=== PATIENT | female | born 2005 | race Caucasian/White ===

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

== ENCOUNTER 2025-04-07 17:35 | Emergency (ER) | payer OTHER, SELFPAY ==
--- NOTE | ~2025-04-07 | US_ITS ---
FIRST TRIMESTER ULTRASOUND 04/07/2025 19:05 CDT Ordering provider: Maci Santillan MD History: . cramping, preg . Comparison: None. FINDINGS: INTRAUTERINE GESTATIONAL SAC: Present. Measures 5.2 cm. Equivalent to 11 weeks and 0 days. YOLK SAC: Not visualized. POLE: Present. Measures 5.8 cm equivalent to 12 weeks and 3 days. heart beats are detected and measures 154 bpm. GESTATIONAL AGE BY TODAY'S US: 12 weeks and 3 days. UTERUS: The uterus measures 11.5x 8.3x 8.4 cm in length which is within normal limits. No myometrial masses. FREE FLUID: None. OVARIES: Normal in size with the right measuring 2.6x 2.4x 1.8 cm and the left is not demonstrated. D oppler flow is demonstrated within the right ovary. ADNEXAL MASSES: None. IMPRESSION: Single live intrauterine with pole of 12 weeks and 3 days. SARAVANAN is October 17, 2025 Reviewed, dictated and finalized at location A.
[2025-04-07 17:38] VITALS: BP 112/73; PULSE 77; RESP 16; TEMP 36.4; O2SAT 100
--- NOTE | 2025-04-07 19:34 | ED_ITS ---
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 cramping Time Seen by Provider: 04/07/25 19:35 Focused HPI: This is a 20 year old female that presents to the ER for pelvic cramping. This is her first . Her OB is Dr. Loomis. Reports she is about 12 weeks . Starting to have cramping at work. Denies any vaginal bleeding. Reports she has not drank much water today. She has had some nausea and vomiting this . Denies fever, dysuria. GENERAL: Well-appearing, well-nourished, and in no acute distress. HEAD: Normocephalic, atraumatic. CHEST: Clear to auscultation. ?No respiratory distress. HEART: Regular rate and rhythm.? NEURO: ?Alert and oriented x3. Patient screened in triage and initial orders placed.? ?Additional care and disposition to be based upon?diagnostic testing and treatment. Related Data Home Medications ?Medication ?Instructions ?Recorded ?Confirmed ?Last Taken ?Type vits no.126-ferrous fum tablet PO 02/20/25 02/20/25 Unknown History 28 mg iron-folic acid 800 mcg tablet (Classic ) Allergies Allergy/AdvReac Type Severity Reaction Status Date / Time gluten Allergy Vomiting Verified 04/07/25 17:36 Review of Systems Review of Systems: All systems reviewed & are unremarkable except as noted in HPI and below PMFSH Past Medical History Medical History (Updated 04/07/25 @ 20:10 by Carrie Luciano PA-C) Rheumatoid arthritis Normal endoscopy Celiac disease GERD (gastroesophageal reflux disease) Surgical History Surgical History (Updated 02/19/25 @ 12:58 by Johana Munguia CMA) History of appendectomy History of endoscopy Family History Family History (Updated 02/19/25 @ 12:57 by Johana Munguia CMA) Mother Hypertension Father Liver cancer Grandparent Cerebrovascular accident Heart disease Diabetes mellitus Hypertension Social History Social History (Updated 02/20/25 @ 14:53 by Johana Munguia CMA) Smoking status: Never smoker Alcohol intake: never Substance use: never Substance use type: does not use Do You Feel Safe in your Home?: Yes Lack of Transportation: YES Lack of Food: Never True Current Housing: I Have Housing Concerned About Future Housing: Decline to Answer Difficulty Paying Gas/Electric Bills: No Difficulty Paying for Meds: No Currently Unemployed: Decline to Answer Education: Decline to Answer Difficulty w/ Childcare or Family Care: No Living arrangements: with family Occupation/Education: occupation Gender identity (if verbalized by the patient): Female Sexual Orientation (if Verbalized by the Patient): Straight or Heterosexual Exam Narrative: GENERAL: Well-appearing, well-nourished, and in no acute distress. HEAD: Normocephalic, atraumatic. EYES: EOMI. CHEST: Clear to auscultation. No respiratory distress. No wheezes rales or rhonchi HEART: Regular rate and rhythm. No murmur heard. Normal peripheral pulses. ABDOMEN: Soft, nondistended EXTREMITIES: Normal range of motion. No edema. SKIN: Warm, dry, no rash. NEURO: No focal deficits. Alert and oriented x3. PSYCH: Normal mood and affect Course Course Emergency Course: Patient and family updated on ultrasound results. She does not wish to stay for any further evaluation or management Vital Signs Vital signs: Vital Signs Temperature 97.6 F 04/07/25 17:38 Pulse Rate 77 04/07/25 17:38 Respiratory Rate 16 04/07/25 17:38 Blood Pressure 112/73 04/07/25 17:38 Pulse Oximetry 100 04/07/25 17:38 Temperature 97.6 F 04/07/25 17:38 Pulse Rate 77 04/07/25 17:38 Respiratory Rate 16 04/07/25 17:38 Blood Pressure 112/73 04/07/25 17:38 Pulse Oximetry 100 04/07/25 17:38 MDM - OB/Uterine Contractions MDM Narrative Medical decision making narrative: Patient presents the emergency department for pelvic cramping in 1st trimester . She denies any vaginal bleeding. Vitals are normal. ultrasound shows single live intrauterine gestation, 12 weeks and 3 days. Patient and family updated on ultrasound results. She does not wish to stay for any further evaluation or management. Instructed on further follow-up with her OB. She was given warnings to return the ER Differential Diagnosis Differential diagnosis: Likely other (dehydration, UTI, threatened miscarriage) Imaging Data Radiologist's impression: ITS Impressions Ultrasound 04/07/25 19:51 IMPRESSION: Single live intrauterine with pole of 12 weeks and 3 days. SARAVANAN is October 17, 2025 Critical Care Time Critical Care Time Critical Care Time: No Discharge Plan Discharge Clinical Impression: Abdominal pain in Qualifiers: Trimester: first trimester Qualified Code(s): O26.891 - Other specified related conditions, first trimester Patient Disposition: Home Condition: Stable Instructions: Abdominal Pain in (ED) Additional Instructions: Return to the ER if you experience fever, abdominal pain with nausea and vomiting, pain or burning with urination, blood in the urine, vaginal bleeding, or any other symptoms that are concerning to you Rest. Remain well hydrated. Tylenol as needed for discomfort Follow up with your OB Patient Language: Tuvaluan Prescriptions: No Action albuterol sulfate 90 mcg/actuation HFA aerosol inhaler 1 inh inhalation QID PRN (Reason: shortness of breath or wheezing) Qty: 8.5 0RF Classic 28 mg iron- 800 mcg tablet PO metoclopramide HCl [Reglan] 5 mg tablet 5 mg PO DAILY Qty: 30 1RF Follow-up/Referrals: Mike,Sadie Aldana MD [Primary Care Provider] - Stuart Loomis MD [Physician] -
== END 2025-04-07 21:44 | disposition home or self-care (01) ==
LOC: ANHED 20:18
PROVIDERS: Emergency Provider Physician Assistant; PCP Internal Medicine Gastroenterology
DX: O26.891 Other specified pregnancy related conditions, first trimester (principal); R10.2 Pelvic and perineal pain; Z3A.12 12 weeks gestation of pregnancy
CPT/HCPCS: 76801; 99284

== ENCOUNTER 2025-06-15 13:06 | Observation (INO) | payer OTHER, SELFPAY ==
[2025-06-15] VITALS (46 sets, daily range): BP systolic 105–122; BP diastolic 51–69; PULSE 41–88; O2SAT 80–100; BMI 31.2
--- NOTE | ~2025-06-15 | US_ITS ---
EXAMINATION: US OB limited, 06/15/2025 14:51 CDT HISTORY: Abdominal pain Comparison: None Technique: Llanos-scale and color Doppler images were obtained COMPARISON: None FINDINGS: The placenta is located anteriorly, there is no gross abruption Single live intrauterine in vertex presentation, heart rate 150 Cervix measures 3.1 cm with no funneling. TONJA 14.0. IMPRESSION: Single live intrauterine detailed above Reviewed, dictated and finalized at location A.
--- OUTSIDE RECORDS SUMMARY | 2025-06-15 13:14 | XMS_ITS | Clinical Summary ---
Author Organization [facility] Address [address] [place] [address] Care Team Providers Care Unit Manager [employer] Name Role Phone Ava Faust MD Primary Care Provider [phone] Source Comments [facility],non-owned Affiliates and Associated Physician Practices is amultiple site organization consisting of ambulatory clinics and hospital sitesin [place], [place], [place] and [place]. This disclosure is being madepursuant to the Care Everywhere program and may not contain all information available regarding this patient. Last updated 18.[facility] Allergies Active Allergy Reactions Criticality Noted Date Comments Gluten Meal 10/07/2017 Medications * Be aware that medications may not be up to date on this document. Alwaysverify current medications with the patient. ondansetron, disintegrating, (Zofran ODT) 4 MG tablet Take 1 (one) tablet by mouth every 6 hours as needed for Nausea/Vomitin g Allow tablet to dissolve on the tongue 5 tablet 3 Active acetaminophen CR (Tylenol Arthritis Pain) 650 MG tablet Take 1 (one) tablet by mouth every 8 hours as needed for Pain Active omeprazole (PriLOSEC) 40 MG capsule Take 1 (one) capsule by mouth daily before breakfast 30 capsule 4 3 Active famotidine (Pepcid) 40 MG tablet Take 1 (one) tablet by mouth once daily 30 tablet 3 3 Active Active Problems Patient Care Coordination No te Formatting of this note migh t be different from the original. 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 ) from Last 3 Months Family History Medical History Relation Name Comments Arthritis - Rheumatoid Maternal Grandmother Congenital Heart defect Paternal Aunt Relation Name Status Comments Maternal Grandmother Paternal Aunt 3 HOLES IN HEA RT THAT RESOLVED ON OWN Social History Tobacco Use Types Packs/Day Years Used Date Smoking Tobacco: Never Passive Smoke Exposure: Yes Smokeless Tobacco: Never Tobacco Cessation:Counseling Given: Not Answered Alcohol Use Standard Drinks/Week Comments Never 0 (1 standard drink = 0.6 oz pur e alcohol) Comments Yes Sex and Gender Information Value Date Recorded Sex Assigned at Not on file Legal 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 Gender Identity Not on file Sexual Orientation Not on file Last Filed Vital Signs Vital Sign Reading Time Taken Comments Blood Pressure 112/70 01/18/2023 2:19 PM CDT Pulse 60 12/11/2022 3:25 AM TETRYL DISSOLVER OPERATOR Temperature 36.7 C (98 F) 12/27/2022 1:34 PM CDT Respiratory Rate 18 12/11/2022 3:25 AM TETRYL DISSOLVER OPERATOR Oxygen Saturation 99% 12/11/2022 3:25 AM TETRYL DISSOLVER OPERATOR Inhaled Oxygen Concentration - - Weight 82.8 kg (182 lb 8.7 oz) 01/18/2023 2:19 P M CDT Height 162.5 cm (5' 3.98) 01/18/2023 2:19 PM CD T Body Mass Index 31.36 01/18/2023 2:19 PM CDT Plan of Treatment Health Maintenance Due Date Last Done Comments HIV SCREENING 2020 HPV VACCINE (1 - 3-dose series) 2020 CHLAMYDIA/GONORRHEA SCREENING 2021 MENINGOCOCCAL (Group B) VACCINE SHARED DECISION-MAKING (1 of 2 - Standard) 2021 HEPATITIS C SCREENING 02/28/2023 DTAP/TDAP/TD VACCINES (1 - Tdap) 2024 HEPATITIS B VACCINE (1 of 3 - 19+ 3-dose series) 2024 COVID-19 VACCINE (1 - 2023- season) 2024 DEPRESSION SCREENING 10/17/2024 INFLUENZA VACCINE (#1) 2025 2, 08/01/2017, 07/17/2015, Additional history exists ZOSTER VACCINE (1 of 2) 2055 Respiratory Syncytial Virus (RSV) Vaccine Pt: or over 60 yrs (1 - 1-dose 75+ series) 2080 HIB VACCINE Aged Out No longer eligi ble based on patient's age to complete this topic MENINGOCOCCAL GROUPS A/C/Y/W VACCINE Aged Out No longer eligible based on patient's age to complete this topic PNEUMOCOCCAL VACCINE Aged Out No long er eligible based on patient's age to complete this [place] [address] [facility] [place] [address] [place] [address] [facility] Care Teams Unit Manager [employer] Relationship Specialty Start Date End Date vAa Faust MD [address] [place] [id number] PCP - General Pediatrics 12/11/22
--- OUTSIDE RECORDS SUMMARY | 2025-06-15 13:14 | XMS_ITS | Clinical Summary ---
Author Organization [facility] Address [address] [place] [address] Care Team Providers Care Reconstructive Surgeon Name Role Phone Sadie Mckeon MD Primary Care Provider Allergies No known active allergies Medications No known medications Active Problems No known active problems Social History Tobacco Use Types Packs/Day Years Used Date Smoking Tobacco: Never Assessed Personal Safety Answer Date Recorded Have you ever been in or are you currently in a harmful physical or emotional relationship or is someone making you feel afraid or unsafe? 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 Gender Identity Not on file Sexual Orientation Not on file Obstetrics History Last Filed Vital Signs Vital Sign Reading Time Taken Comments Blood Pressure 104/68 10/27/2023 8:39 PM STEAM FITTER SUPERVISOR MAINTENANCE Pulse 112 10/27/2023 8:39 PM STEAM FITTER SUPERVISOR MAINTENANCE Temperature 36.4 C (97.6 F) 10/27/2023 8:39 PM STEAM FITTER SUPERVISOR MAINTENANCE Respiratory Rate 20 10/27/2023 8:39 PM STEAM FITTER SUPERVISOR MAINTENANCE Oxygen Saturation 100% 10/27/2023 8:39 PM STEAM FITTER SUPERVISOR MAINTENANCE Inhaled Oxygen Concentration - - Weight 77.1 kg (170 lb) 10/27/2023 8:39 PM STEAM FITTER SUPERVISOR MAINTENANCE Height 162.6 cm (5' 4) 10/27/2023 8:39 PM STEAM FITTER SUPERVISOR MAINTENANCE Body Mass Index 29.18 10/27/2023 8:39 PM STEAM FITTER SUPERVISOR MAINTENANCE Plan of Treatment Not on file Insurance [facility] [address] Care Teams Reconstructive Surgeon Relationship Specialty [place] [address] [place] [id number] PCP - General Gastroenterology 10/27/23
[2025-06-15 13:35] LABS: Add Urine Microscopic? YES; Appearance Urine Cloudy (Clear); Glucose Urine UA Negative (Negative); Leukocyte Esterase Ur Trace LEU/UL (Negative); Nitrate Urine Negative (Negative); Non Pathogenic Casts 0-2; Specific Grav Ur 1.008 (1.001-1.035)
--- NOTE | 2025-06-15 13:39 | LDADM ---
This patient, Anand Rasheed, was admitted to OB Post [facility] on 06/15/25 at 13:06. Plans for labor, pain management and were discussed with patient. Patient/family oriented to hospital policies and general routines including ID bracelet, bed and alarms, visiting hours, pain management, procedures, bathroom and other care routines, personal items, smoking policy, room service/diet and guest tray routines, infant security routines, and visiting hours. Patient/Family are encouraged to report perceived risks to care and to ask questions if they do not understand what they are told or what they should do. See OBIX for further documentation.
--- NOTE | 2025-06-15 14:21 | PC.NURSE ---
[address] Wong to report pt. symptoms lab results, and vital signs to . Orders received for pt to get ultrasound including TONJA, cervical length, and placenta check.
--- NOTE | 2025-06-15 14:23 | PC.NURSE ---
1306- Pt. arrived to unit via ambulance. Pt. c/o lower abdominal pain and pressure and lower back pain. Pt. states she started feeling this pain last night 06/14/25 around 1999. Pt. had intercourse one hour prior to feeling this pain. Pt. does not report any vaginal bleeding or leaking of fluid at this time. Pt. feeling fetus move appropriately. Pt. does not have her own housing and is currently living in a motel with the fob. Pt has celiac disease but states she does not follow appropriate celiac gluten free diet due to financial situation. Pt. does not have her own form of transportation or cell phone. Pt. has not eaten anything today prior to arriving at hospital. RN provided gluten free foods for pt. to eat and water. Used doppler to obtain FHT's with baseline at 124. Used toco transducer to obtain uterine activity. No uterine activity or contractions per toco at this time.
--- NOTE | 2025-06-15 15:26 | PC.NURSE ---
1517- Called Dr. Wong to report ultrasound results. Orders received.
[2025-06-15] MEDS: ACETAMINOPHEN 500 MG TABLET PO (15:35)
[2025-06-15] MEDS: CYCLOBENZAPRINE HCL 10 MG TABLET PO (15:36)
[2025-06-15 15:52] LABS: Hematocrit 34.4 % (37.0-47.0); Hemoglobin 11.7 g/dL (12.0-15.0); Mean Corpuscular HGB Conc 34.0 g/dl (32-36); Mean Corpuscular Hemoglobin 30.5 pg (26-34); Mean Corpuscular Volume 89.6 fl (80-100); Platelet Count Result 166 k/mm3 (150-375); Red Blood Count 3.84 M/mm3 (4.2-5.4); White Blood Count 11.6 K/mm3 (4.5-10.0)
[2025-06-15 16:10] LABS: Alanine Aminotransferase 13 U/L (6-35); Albumin Level 3.9 g/dL (3.5-5.1); Alkaline Phosphatase 43 U/L (38-126); Anion Gap 8 mmol/L (4-12); Aspartate Amino Transferase 19 U/L (14-36); Bilirubin,Total 0.4 mg/dL (0.2-1.3); Blood Urea Nitrogen 5 mg/dL (7-17); Calcium 9.2 mg/dL (8.4-10.2); Carbon Dioxide 23 mmol/L (22-30); Chloride 106 mmol/L (98-107); Estimated CRCL calculation 178 ml/min; Estimated Glomerular Filt Rate > 60; Glucose 80 mg/dL (65-110); Potassium 3.5 mmol/L (3.4-5.0); Sodium 137 mmol/L (137-145); Total Protein 7.4 g/dL (6.3-8.2)
--- NOTE | 2025-06-15 16:49 | PC.NURSE ---
1600- Spoke to pt. prior to discharge about where she will be returning once dc from hospital. Pt. states mother (who is at bedside at this time) will drive her home to their house and then mother in law will come apple picking supervisor pt and bring her back to motel where pt and fob are currently living. Mother of pt. states she is welcome to return to their family home whenever she pleases now and after the baby comes. Pt. is aware of this offer and refuses to stay at home with mom and dad but recognizes this is a safe option for her if she would like. Pt. would rather live in motel with fob.
--- NOTE | 2025-06-15 16:53 | PC.NURSE ---
7230- Called Dr. Wong to report lab results from CMP and CBC. Also reported pt pain reassessment. Pt. states her pain is at a 0 now. Orders received from MD to discharge pt home.
--- NOTE | 2025-06-18 07:39 | P.PNOB_ITS ---
OB - Triage/Final Diagnosis Visit Information Comments/Additional reasons for admission: I have assessed the risk for this patient, Anand Rasheed, and determined that she would benefit from observation care. Evaluation Laboratory results: Laboratory Tests 06/15/25 06/15/25 13:26 15:40 WBC 11.6 H RBC 3.84 L Hgb 11.7 L Hct 34.4 L MCV 89.6 MCH 30.5 MCHC 34.0 RDW 13.8 Plt Count 166 MPV 10.9 H Sodium 137 Potassium 3.5 Chloride 106 Carbon Dioxide 23 Anion Gap 8 BUN 5 L D Creatinine 0.41 L Estim Creat Clear Calc 178 Estimated GFR > 60 Glucose 80 Calcium 9.2 Total Bilirubin 0.4 AST 19 ALT 13 Alkaline Phosphatase 43 Total Protein 7.4 Albumin 3.9 Urine Color Yellow Urine Appearance Cloudy H Urine pH 7.0 Ur Specific [place] 1.008 Urine Protein Negative Urine Glucose (UA) Negative Urine Ketones Negative Ur Blood (Man) Negative Urine Nitrate Negative Urine Bilirubin Negative Urine Urobilinogen 0.2 Leukocyte Esterase Rfl Trace H Urine RBC 0-2 Urine WBC 11-20 H Ur Squamous Epith Cells Many H Urine Bacteria 1+ H Urine Casts 0-2 Final Diagnosis (1) Abdominal pain affecting : Code(s): O26.899 - Other specified related conditions, unspecified trimester; R10.9 - Unspecified abdominal pain Status: Acute
== END 2025-06-15 16:50 | disposition home or self-care (01) ==
PROVIDERS: Admitting Provider Obstetrics & Gynecology; Visit Provider Obstetrics & Gynecology
DX: O26.92 Pregnancy related conditions, unspecified, second trimester (principal); R10.9 Unspecified abdominal pain; Z3A.22 22 weeks gestation of pregnancy
CPT/HCPCS: 36415; 76815; 80053; 81001; 85027; A9270; G0378; G0379

== ENCOUNTER 2025-06-21 12:29 | Observation (INO) | payer OTHER, SELFPAY ==
[2025-06-21] VITALS (11 sets, daily range): BP systolic 122–128; BP diastolic 67–79; PULSE 56–87; TEMP 36.4; O2SAT 97–99; BMI 31.2
--- NOTE | 2025-06-21 12:32 | PC.NURSE ---
Patient arrives to OB unit with complaints of lower abdominal and back pain. Patient states when she wipes it feels like sandpaper after she urinates. Patient denies any vaginal bleeding or leaking of fluid. Patient is a . Patient states she feels movement. Patient states she took tylenol this morning and it did not relieve the pain. Patient abdomen is soft to palpation. [id number]- RN notified MD of patient arrival and patient's urine sample. RN also notified MD of patient complaints as well as FHT tracing and abdomen that is soft to palpation, as well as VS. MD gave medication orders, see MAR. MD gave orders to d/c patient after medications are given.
--- OUTSIDE RECORDS SUMMARY | 2025-06-21 12:41 | XMS_ITS | Clinical Summary ---
Author Organization [facility] Address [address] [place] [address] Care Team Providers Care Mobility Engineer Name Role Phone Sadie Mckeon MD Primary [...] on file Legal Sex Female 11:19 AM TUGBOAT ENGINEER Gender Identity Not on file Sexual Orientation Not on file Obstetrics History Last Filed Vital Signs Vital Sign Reading Time Taken Comments Blood Pressure 104/68 10/27/2023 8:39 PM TUGBOAT ENGINEER Pulse 112 10/27/2023 8:39 PM TUGBOAT ENGINEER Temperature 36.4 C (97.6 F) 10/27/2023 8:39 PM TUGBOAT ENGINEER Respiratory Rate 20 10/27/2023 8:39 PM TUGBOAT ENGINEER Oxygen Saturation 100% 10/27/2023 8:39 PM TUGBOAT ENGINEER Inhaled Oxygen Concentration - - Weight 77.1 kg (170 lb) 10/27/2023 8:39 PM TUGBOAT ENGINEER Height 162.6 cm (5' 4) 10/27/2023 8:39 PM TUGBOAT ENGINEER Body Mass Index 29.18 10/27/2023 8:39 PM TUGBOAT ENGINEER Plan of Treatment Not on file Insurance [facility] [place] [address] Care Teams Mobility Engineer Relationship Specialty [place] [address] [place] [id number] PCP - General Gastroenterology 10/27/23
--- OUTSIDE RECORDS SUMMARY | 2025-06-21 12:41 | XMS_ITS | Clinical Summary ---
Author Organization [facility] [employer] Address [address] [place] [address] Care Team Providers Care Front End Specialist Name Role Phone Ava Faust MD Primary Care Provider [phone] Source Comments [facility],non-owned Affiliates and Associated Physician Practices is amultiple site organization consisting of ambulatory clinics and hospital sitesin [place], [place], [place] and [place]. This disclosure is being madepursuant to the Care Everywhere program and may not contain all information available regarding this patient. Last updated 18.[facility] [employer] Allergies Active Allergy Reactions Criticality Noted Date [...] Type Department Care Team Description 04/22/2025 Telephone [facility] Maternal & Care [facility] [place] [phone] Venessa Fraser RN Future Appointment (Patient returned [...] on file Legal Sex Female 5:44 AM GLUER AND SLICER HAND Gender Identity Not on file Sexual Orientation Not on file Last Filed Vital Signs Vital Sign Reading Time Taken Comments Blood Pressure 112/70 01/18/2023 2:19 PM CDT Pulse 60 12/11/2022 3:25 AM GLUER AND SLICER HAND Temperature 36.7 C (98 F) 12/27/2022 1:34 PM CDT Respiratory Rate 18 12/11/2022 3:25 AM GLUER AND SLICER HAND Oxygen Saturation 99% 12/11/2022 3:25 AM GLUER AND SLICER HAND Inhaled Oxygen Concentration - - Weight 82.8 [...] of 3 - 19+ 3-dose series) 2024 DEPRESSION SCREENING 10/17/2024 COVID-19 VACCINE (1 - season) 2025 INFLUENZA VACCINE (#1) 2025 2, 08/01/2017, 07/17/2015, [...] to complete this topic [place] [address] [facility] [place] [address] [facility] Care Teams Front End Specialist Relationship Specialty Start Date End Date Ava Faust MD [address] [place] [phone] PCP - General Pediatrics 12/11/22
--- NOTE | 2025-06-21 12:45 | OBADM ---
This patient, Anand Rasheed, admitted to the OB room OB Post 115 for observation. Patient/family oriented to hospital policies and general routines including ID bracelet, bed and alarms, visiting hours, pain management, procedures, bathroom and other care routines, personal items, smoking policy, room service/diet, and visiting hours. Patient/Family are encouraged to report perceived risks to care and to ask questions if they do not understand what they are told or what they should do.
[2025-06-21 13:07] LABS: Add Urine Microscopic? YES; Appearance Urine Cloudy (Clear); Glucose Urine UA Negative (Negative); Leukocyte Esterase Ur Negative LEU/UL (Negative); Nitrate Urine Negative (Negative); Non Pathogenic Casts 0-2; Specific Grav Ur 1.008 (1.001-1.035)
[2025-06-21] MEDS: FLUCONAZOLE 150 MG TABLET PO (13:40)
--- NOTE | 2025-06-24 13:49 | P.PNOB_ITS ---
OB - Triage/Final Diagnosis Visit Information Date of evaluation: 06/21/25 Reason for evaluation: threatened labor Comments/Additional reasons for admission: I have assessed the risk for this patient, Anand Rasheed, and determined that she would benefit from observation care. Evaluation Laboratory results: Laboratory Tests 06/21/25 12:53 Urine Color Yellow Urine Appearance Cloudy H Urine pH 8.5 Ur Specific [place] 1.008 Urine Protein Negative Urine Glucose (UA) Negative Urine Ketones Negative Ur Blood (Man) Negative Urine Nitrate Negative Urine Bilirubin Negative Urine Urobilinogen 0.2 Leukocyte Esterase Rfl Negative Urine RBC 0-2 Urine WBC 0-5 Ur Squamous Epith Cells Occasional Urine Bacteria None seen Urine Casts 0-2
== END 2025-06-21 15:15 | disposition home or self-care (01) ==
PROVIDERS: Admitting Provider Student in an Organized Health Care Education/Training Program; Visit Provider Student in an Organized Health Care Education/Training Program
DX: O47.02 False labor before 37 completed weeks of gestation, second trimester (principal); Z3A.23 23 weeks gestation of pregnancy
CPT/HCPCS: 59025; 81001; A9270; G0378; G0379

== ENCOUNTER 2025-08-06 14:45 | Outpatient (CLI) | payer OTHER, SELFPAY ==
[2025-08-06 16:09] LABS: Hematocrit 37.6 % (37.0-47.0); Hemoglobin 12.6 g/dL (12.0-15.0); Mean Corpuscular HGB Conc 33.5 g/dl (32-36); Mean Corpuscular Hemoglobin 30.4 pg (26-34); Mean Corpuscular Volume 90.6 fl (80-100); Platelet Count Result 189 k/mm3 (150-375); Red Blood Count 4.15 M/mm3 (4.2-5.4); White Blood Count 13.9 K/mm3 (4.5-10.0)
[2025-08-06 16:22] LABS: Glucose 1 Hour PP 50gm Dose 68 mg/dL
[2025-08-06 17:13] LABS: Syphilis IgG/IgM Antibody Non-Reactive (Nonreactive)
--- OUTSIDE RECORDS SUMMARY | 2025-08-06 18:42 | XMS_ITS | Clinical Summary ---
Author Organization [facility] [employer] Address [address] [place] [address] Care Team Providers Care Glove Parts Cutter Name Role Phone Ava Faust MD Primary Care Provider [phone] Source Comments [facility],non-owned Affiliates and Associated Physician Practices is amultiple site organization consisting of ambulatory clinics and hospital sitesin [place], [place]. This disclosure is being madepursuant to the Care Everywhere program and may not contain all information available regarding this patient. Last updated 18.[facility] Allergies Active Allergy Reactions Criticality Noted Date [...] 95% Right ankle injury 02/19/2014 Comments Yes Family History Medical History Relation Name Comments [...] on file Legal Sex Female 5:44 AM CONCRETE SCULPTOR Gender Identity Not on file Sexual Orientation Not on file Last Filed Vital Signs Vital Sign Reading Time Taken Comments Blood Pressure 112/70 01/18/2023 2:19 PM CDT Pulse 60 12/11/2022 3:25 AM CONCRETE SCULPTOR Temperature 36.7 C (98 F) 12/27/2022 1:34 PM CDT Respiratory Rate 18 12/11/2022 3:25 AM CONCRETE SCULPTOR Oxygen Saturation 99% 12/11/2022 3:25 AM CONCRETE SCULPTOR Inhaled Oxygen Concentration - - Weight 82.8 [...] DEPRESSION SCREENING 10/17/2024 COVID-19 VACCINE (1 - 2023- season) 2025 INFLUENZA VACCINE (#1) 2025 2, [...] patient's age to complete this topic Insurance [facility] Care Teams Glove Parts Cutter Relationship Specialty Start Date End Date Ava Faust MD [address] [place] [phone] PCP - General Pediatrics 12/11/22
--- OUTSIDE RECORDS SUMMARY | 2025-08-06 18:42 | XMS_ITS | Clinical Summary ---
Author Organization [facility] Address [address] [place] [address] Care Team Providers Care Ebay Reseller Name Role Phone Sadie Mckeon MD Primary [...] on file Legal Sex Female 11:19 AM HISTOTECHNOLOGIST Gender Identity Not on file Sexual Orientation Not on file Obstetrics History Last Filed Vital Signs Vital Sign Reading Time Taken Comments Blood Pressure 104/68 10/27/2023 8:39 PM HISTOTECHNOLOGIST Pulse 112 10/27/2023 8:39 PM HISTOTECHNOLOGIST Temperature 36.4 C (97.6 F) 10/27/2023 8:39 PM HISTOTECHNOLOGIST Respiratory Rate 20 10/27/2023 8:39 PM HISTOTECHNOLOGIST Oxygen Saturation 100% 10/27/2023 8:39 PM HISTOTECHNOLOGIST Inhaled Oxygen Concentration - - Weight 77.1 kg (170 lb) 10/27/2023 8:39 PM HISTOTECHNOLOGIST Height 162.6 cm (5' 4) 10/27/2023 8:39 PM HISTOTECHNOLOGIST Body Mass Index 29.18 10/27/2023 8:39 PM HISTOTECHNOLOGIST Plan of Treatment Not on file Insurance [facility] [place] [address] Care Teams Ebay Reseller Relationship Specialty [place] [address] [place] [id number] PCP - General Gastroenterology 10/27/23
[2025-08-06 21:50] LABS: HIV 1/2 Ab P24 Ag Result Negative (Negative)
== END 2025-08-06 14:46 | disposition home or self-care (01) ==
LOC: ANHLAB 14:46
PROVIDERS: PCP Internal Medicine Gastroenterology; Visit Provider Student in an Organized Health Care Education/Training Program
DX: Z34.90 Encounter for supervision of normal pregnancy, unspecified, unspecified trimester (principal)
CPT/HCPCS: 36415; 82947; 85027; 86593; 86703; G0432

== ENCOUNTER 2025-08-09 15:15 | Observation (INO) | payer OTHER, SELFPAY ==
[2025-08-09] VITALS (44 sets, daily range): BP systolic 105–133; BP diastolic 52–76; PULSE 58–107; O2SAT 97–100
[2025-08-09 15:55] LABS: Add Urine Microscopic? YES; Appearance Urine Cloudy (Clear); Glucose Urine UA Negative (Negative); Leukocyte Esterase Ur Trace LEU/UL (Negative); Nitrate Urine Negative (Negative); Non Pathogenic Casts 0-2; Specific Grav Ur 1.015 (1.001-1.035)
[2025-08-09] MEDS: ACETAMINOPHEN 500 MG TABLET 1000 MG PO (16:50)
[2025-08-09] MEDS: CYCLOBENZAPRINE HCL 10 MG TABLET PO (16:52)
[2025-08-09] MEDS: TERBUTALINE SULFATE 1 MG/ML VIAL 0.25 MG SUB-Q (18:10)
[2025-08-09 18:35] LABS: OBXCEM ROM Plus Negative (Negative)
--- NOTE | 2025-08-12 09:47 | P.PNOB_ITS ---
OB - Triage/Final Diagnosis Visit Information Date of evaluation: 08/09/25 Reason for evaluation: threatened labor Comments/Additional reasons for admission: I have assessed the risk for this patient, Anand Rasheed, and determined that she would benefit from observation care. Evaluation Laboratory results: Laboratory Tests 08/09/25 08/09/25 15:45 17:42 Urine Color Yellow Urine Appearance Cloudy H Urine pH 7.5 Ur Specific [place] 1.015 Urine Protein Negative Urine Glucose (UA) Negative Urine Ketones Negative Ur Blood (Man) Negative Urine Nitrate Negative Urine Bilirubin Negative Urine Urobilinogen 1.0 Leukocyte Esterase Rfl Trace H Urine RBC 0-2 Urine WBC 0-5 Ur Squamous Epith Cells Occasional Urine Bacteria None seen Urine Casts 0-2 Membranes Rupture Rom plus negative
== END 2025-08-09 19:03 | disposition home or self-care (01) ==
PROVIDERS: Admitting Provider Student in an Organized Health Care Education/Training Program; Visit Provider Student in an Organized Health Care Education/Training Program
DX: O47.03 False labor before 37 completed weeks of gestation, third trimester (principal); Z3A.30 30 weeks gestation of pregnancy
CPT/HCPCS: 81001; 84112; 96372; A9270; G0378; G0379; J3105

== ENCOUNTER 2025-08-23 13:28 | Emergency (ER) | payer OTHER, SELFPAY ==
[2025-08-23] VITALS (15 sets, daily range): BP systolic 105–111; BP diastolic 59–86; PULSE 60–98; RESP 13–24; O2SAT 97–100
--- NOTE | ~2025-08-23 | CT_ITS ---
EXAMINATION: CT brain wo con DATE: 08/23/2025 13:36 INDICATION: Right-sided hemiparesis during third trimester . TECHNIQUE: Computed tomography (CT) of the head was performed without intravenous contrast. Sagittal and coronal reconstructions were performed. The mA was adjusted according to patient size. Iterative reconstruction technique was employed. The dose-length product was 529.67 mGy-cm. COMPARISON: head CT dated 06/29/2023 FINDINGS: No acute intracranial hemorrhage, acute infarction or abnormal extra axial fluid collection. Ventricles are normal and symmetric. No mass/mass effect. The orbits, paranasal sinuses and mastoid air cells are normal. IMPRESSION: 1. Normal head CT. Reviewed, dictated and finalized at location A. OWS SOFTWARE DEVELOPER IMPRESSION: 1. Normal head CT.
--- NOTE | ~2025-08-23 | XR_ITS ---
EXAMINATION: XR chest 1V portable DATE: 08/23/2025 14:09 INDICATION: Weakness TECHNIQUE: A single frontal view of the chest was obtained. COMPARISON: 06/29/2023 FINDINGS: The lungs are clear. Heart shadow appears normal. Bones appear intact. IMPRESSION: 1. No focal acute process. Reviewed, dictated and finalized at location A. Y LEVEL LAB TECHNICIAN IMPRESSION: 1. No focal acute process.
--- NOTE | 2025-08-23 13:29 | ECG_ITS ---
Test Date: 2025-08-23 13:58:47 Measurements Intervals [place] Rate: 57 P: 33 MD: 142 QRS: 34 QRSD: 83 T: -3 QT: 402 QTc: 394 Interpretive Statements SINUS BRADYCARDIA WITH SINUS ARRHYTHMIA NONSPECIFIC T-WAVE ABNORMALITY No previous ECG available for comparison Electronically Signed On 08-23-2025 15:21:38 RESTAURANT ATTENDANT by Pranay Burr D.O
[2025-08-23 13:48] LABS: Hematocrit 33.1 % (37.0-47.0); Hemoglobin 11.3 g/dL (12.0-15.0); Immature Granulocyte Percent A 0.8 % (0-0.5); Lymphocytes Absolute Auto 2.34 K/mm3 (0.9-3.2); Mean Corpuscular HGB Conc 34.1 g/dl (32-36); Mean Corpuscular Hemoglobin 30.1 pg (26-34); Mean Corpuscular Volume 88.0 fl (80-100); Nucleated Red Blood Cells Absolute Auto 0.000 K/mm3 (0.0-0.012); Nucleated Red Blood Cells Perc 0.0 % (0.0-0.2); Platelet Count Result 155 k/mm3 (150-375); Red Blood Count 3.76 M/mm3 (4.2-5.4); White Blood Count 10.9 K/mm3 (4.5-10.0)
[2025-08-23 13:58] LABS: INR 1.0; Prothrombin Time 13.2 Seconds (11.1-14.7)
[2025-08-23 13:59] LABS: Partial Thromboplastin Time 28.5 Seconds (22.3-36.8)
[2025-08-23 14:03] LABS: Alanine Aminotransferase 11 U/L (6-35); Albumin Level 3.8 g/dL (3.5-5.1); Alkaline Phosphatase 85 U/L (38-126); Anion Gap 7 mmol/L (4-12); Aspartate Amino Transferase 17 U/L (14-36); Bilirubin,Total 0.4 mg/dL (0.2-1.3); Blood Urea Nitrogen 5 mg/dL (7-17); Calcium 8.5 mg/dL (8.4-10.2); Carbon Dioxide 20 mmol/L (22-30); Chloride 107 mmol/L (98-107); Estimated CRCL calculation 174 ml/min; Estimated Glomerular Filt Rate > 60; Glucose 86 mg/dL (65-110); Potassium 3.4 mmol/L (3.4-5.0); Sodium 134 mmol/L (137-145); Total Protein 7.2 g/dL (6.3-8.2)
[2025-08-23 14:10] LABS: Troponin I < 0.012 ng/mL (0.000-0.034)
--- OUTSIDE RECORDS SUMMARY | 2025-08-23 14:35 | XMS_ITS | Clinical Summary ---
Author Organization [facility] Address [address] [place] [address] Care Team Providers Care Glass Lined Tank Repairer Name Role Phone Ava Faust MD Primary Care Provider [phone] Source Comments [facility],non-owned Affiliates and Associated Physician Practices is amultiple site organization consisting of ambulatory clinics and hospital sitesin [place], [place], [place] and [place]. This disclosure is being madepursuant to the Care Everywhere program and may not contain all information available regarding this patient. Last updated 18.[facility] Allergies Active Allergy Reactions Criticality Noted Date [...] on file Legal Sex Female 5:44 AM CATTLE KILLER Gender Identity Not on file Sexual Orientation Not on file Last Filed Vital Signs Vital Sign Reading Time Taken Comments Blood Pressure 112/70 01/18/2023 2:19 PM CDT Pulse 60 12/11/2022 3:25 AM CATTLE KILLER Temperature 36.7 C (98 F) 12/27/2022 1:34 PM CDT Respiratory Rate 18 12/11/2022 3:25 AM CATTLE KILLER Oxygen Saturation 99% 12/11/2022 3:25 AM CATTLE KILLER Inhaled Oxygen Concentration - - Weight 82.8 [...] patient's age to complete this topic Insurance [facility] Care Teams Glass Lined Tank Repairer Relationship Specialty Start Date End Date Ava Faust MD [address] [place] [phone] PCP - General Pediatrics 12/11/22
--- OUTSIDE RECORDS SUMMARY | 2025-08-23 14:35 | XMS_ITS | Clinical Summary ---
Author Organization [facility] Address [address] [place] [address] Care Team Providers Care Stock Tracer Name Role Phone Sadie Mckeon MD Primary [...] on file Legal Sex Female 11:19 AM NURSE PRACTITIONER PHYSICIANS ASSISTANT Gender Identity Not on file Sexual Orientation Not on file Last Filed Vital Signs Vital Sign Reading Time Taken Comments Blood Pressure 104/68 10/27/2023 8:39 PM NURSE PRACTITIONER PHYSICIANS ASSISTANT Pulse 112 10/27/2023 8:39 PM NURSE PRACTITIONER PHYSICIANS ASSISTANT Temperature 36.4 C (97.6 F) 10/27/2023 8:39 PM NURSE PRACTITIONER PHYSICIANS ASSISTANT Respiratory Rate 20 10/27/2023 8:39 PM NURSE PRACTITIONER PHYSICIANS ASSISTANT Oxygen Saturation 100% 10/27/2023 8:39 PM NURSE PRACTITIONER PHYSICIANS ASSISTANT Inhaled Oxygen Concentration - - Weight 77.1 kg (170 lb) 10/27/2023 8:39 PM NURSE PRACTITIONER PHYSICIANS ASSISTANT Height 162.6 cm (5' 4) 10/27/2023 8:39 PM NURSE PRACTITIONER PHYSICIANS ASSISTANT Body Mass Index 29.18 10/27/2023 8:39 PM NURSE PRACTITIONER PHYSICIANS ASSISTANT Plan of Treatment Not on file Insurance [facility] Care Teams Stock Tracer Relationship Specialty [place] [address] [place] [id number] PCP - General Gastroenterology 10/27/23
--- NOTE | 2025-08-23 16:06 | ED.NEUROSD ---
HPI - Neuro Symptoms/Deficit General Chief Complaint: Suspected CVA Stated Complaint: R sided weakness x 2 hours Time Seen by Provider: 08/23/25 14:26 Source: patient Mode of arrival: EMS Limitations: no limitations History of Present Illness HPI Narrative: 20-year-old 1 para 0 about 30 weeks of gestation comes in by EMS with complaints of right-sided numbness from head to toe started about 2:00 a.m. this morning. She denies any motor weakness. Denies having any headache or chest pain or shortness of breath. She endorses as her OB ,denies any vaginal bleeding .pt soon after she arrived while she was unable to move right side , was taken to CT scan , she walked to the scaner with out any difficulty . Onset (ago): hour(s) (12) Location: right arm and right leg History of same: Yes Severity: moderate Quality: numb Relieving factors: none Exacerbating factors: none Related Data Home Medications ?Medication ?Instructions ?Recorded ?Confirmed ?Last Taken ?Type ondansetron 4 mg disintegrating 4 mg PO Q8H 04/10/25 08/14/25 Unknown History tablet Allergies Allergy/AdvReac Type Severity Reaction Status Date / Time tramadol Allergy Mild Nausea Verified 08/14/25 14:35 gluten Allergy Vomiting Verified 08/14/25 14:35 [facility] Past Medical History Medical History Rheumatoid arthritis Normal endoscopy Celiac disease GERD (gastroesophageal reflux disease) Surgical History Surgical History History of appendectomy History of endoscopy Family History Family History Mother Hypertension Father Liver cancer Grandparent Cerebrovascular accident Heart disease Diabetes mellitus Hypertension Social History Social History Alcohol intake: never Substance use: never Substance use type: does not use Do You Feel Safe in your Home?: Yes Lack of Transportation: No Lack of Food: Never True Current Housing: I Have Housing Concerned About Future Housing: No Difficulty Paying Gas/Electric Bills: No Difficulty Paying for Meds: No Currently Unemployed: No Education: Grade School Difficulty w/ Childcare or Family Care: No Living arrangements: with family Occupation/Education: occupation Gender identity (if verbalized by the patient): Female Sexual Orientation (if Verbalized by the Patient): Straight or Heterosexual Course Course Emergency Course: i notified her about her lab ,CT findings while i was talking to her about her lab work , she was holding her phone /i pad with her hand , she now complaints of pain rather then numbness ,OB was here for NST . i discussed with Dr Patito Galicia ,by the time i went to tell her ,she is ready to go home , ambulated with out any problems Vital Signs Vital signs: Vital Signs Pulse Rate 67 08/23/25 13:29 Respiratory Rate 18 08/23/25 13:29 Blood Pressure 110/59 L 08/23/25 13:29 Pulse Oximetry 98 08/23/25 13:29 Pulse Rate 61 08/23/25 16:36 Respiratory Rate 18 08/23/25 16:36 Blood Pressure 111/67 08/23/25 14:57 Pulse Oximetry 100 08/23/25 16:36 Oxygen Delivery Room Air 08/23/25 13:43 MDM - Neuro Symptoms/Deficit Differential Diagnosis Differential diagnosis: Likely cerebrovascular accident, transient cerebral ischemia and other (stroke mimic , anxiety) Medical Records Attestation: I reviewed the patient's medical records. Lab Data Attestation: I reviewed the patient's lab results. 08/23/25 13:42 08/23/25 13:42 Labs: Lab Results 08/23/25 Range/Units 13:42 WBC 10.9 H (4.5-10.0) K/mm3 RBC 3.76 L (4.2-5.4) M/mm3 Hgb 11.3 L (12.0-15.0) g/dL Hct 33.1 L (37.0-47.0) % MCV 88.0 (80-100) fl MCH 30.1 (26-34) pg MCHC 34.1 (32-36) g/dl RDW 13.2 (11.5-14.5) % Plt Count 155 (150-375) k/mm3 MPV 11.1 H (7.4-10.4) fl Immature Gran % (Auto) 0.8 H (0-0.5) % Neut % (Auto) 72.4 (45.5-73.1) % Lymph % (Auto) 21.5 (18.3-44.2) % [place] % (Auto) 4.9 (2.6-8.5) % Eos % (Auto) 0.1 (0-4.4) % Baso % (Auto) 0.3 (0.2-1.2) % Lymph # (Auto) 2.34 (0.9-3.2) K/mm3 [place] # (Auto) 0.5 (0.1-0.6) K/mm3 Eos # (Auto) 0.0 (0-0.3) K/mm3 Baso # (Auto) 0.0 (0.0-0.1) K/mm3 Abs Immat Gran (auto) 0.09 H (0.00-0.031) K/mm3 Absolute Neuts (auto) 7.9 H (1.3-6.7) K/mm3 Absolute Nucleated RBC 0.000 (0.0-0.012) K/mm3 Nucleated RBC % 0.0 (0.0-0.2) % PT 13.2 (11.1-14.7) Seconds INR 1.0 APTT 28.5 (22.3-36.8) Seconds Sodium 134 L (137-145) mmol/L Potassium 3.4 (3.4-5.0) mmol/L Chloride 107 (98-107) mmol/L Carbon Dioxide 20 L (22-30) mmol/L Anion Gap 7 (4-12) mmol/L BUN 5 L (7-17) mg/dL Creatinine 0.46 L (0.7-1.0) mg/dL Estim Creat Clear Calc 174 ml/min Estimated GFR > 60 (59 - ) Glucose 86 (65-110) mg/dL Calcium 8.5 (8.4-10.2) mg/dL Total Bilirubin 0.4 (0.2-1.3) mg/dL AST 17 (14-36) U/L ALT 11 (6-35) U/L Alkaline Phosphatase 85 (38-126) U/L Troponin I < 0.012 (0.000-0.034) ng/mL Total Protein 7.2 (6.3-8.2) g/dL Albumin 3.8 (3.5-5.1) g/dL ECG Data EKG #1: ECG completion date: 08/23/25 ECG completion time: 13:58 EKG Interpretation: bradycardia (57), sinus rhythm, no ectopy, no ST changes, normal QRS and normal QT Discharge Plan Discharge Clinical Impression: Right sided numbness, Conversion disorder Patient Disposition: Home Condition: Stable Instructions: Antibiotic Form Additional Instructions: contiunue home medications, follow with your doctor. Patient Language: Occitan Prescriptions: No Action albuterol sulfate 90 mcg/actuation HFA aerosol inhaler 1 inh inhalation QID PRN (Reason: shortness of breath or wheezing) Qty: 8.5 0RF Classic 28 mg iron- 800 mcg tablet 1 tablet PO DAILY Qty: 90 1RF ondansetron 4 mg tablet,disintegrating 4 mg PO Q8H famotidine 20 mg tablet 20 mg PO DAILY Qty: 30 0RF Follow-up/Referrals: Mike,Sadie Aldana MD [Primary Care Provider] Stuart Loomis MD [Physician, PAINT CREW SUPERVISOR] Time of Disposition: 16:07
--- NOTE | 2025-08-23 16:25 | PC.NURSE ---
patient ambulated to the bathroom with a steady gait
--- NOTE | 2025-08-30 20:51 | ED.NEUROSD ---
HPI - Neuro Symptoms/Deficit General Chief Complaint: Suspected CVA Stated Complaint: R sided weakness x 2 hours Time Seen by Provider: 08/23/25 14:26 Source: patient Mode of arrival: EMS Limitations: no limitations History of Present Illness Location: right arm and right leg History of same: Yes Severity: moderate Quality: numb Relieving factors: none Exacerbating factors: none Related Data Home Medications ?Medication ?Instructions ?Recorded ?Confirmed ?Last Taken ?Type ondansetron 4 mg disintegrating 4 mg PO Q8H 04/10/25 08/14/25 Unknown History tablet Allergies Allergy/AdvReac Type Severity Reaction Status Date / Time tramadol Allergy Mild Nausea Verified 08/28/25 08:48 gluten Allergy Vomiting Verified 08/28/25 08:48 Review of Systems Review of Systems: All systems reviewed & are unremarkable except as noted in HPI and below Constitutional: Constitutional: Reports no additional constitutional complaints Eyes: Eyes: Reports no additional eye complaints ENT: Reports system reviewed and no additional complaints, except as documented Cardiovascular: Cardiovascular: Reports no additional cardiovascular complaints Respiratory: Respiratory: Reports no additional respiratory complaints Gastrointestinal: Gastrointestinal: Reports no additional gastrointestinal complaints Musculoskeletal: Musculoskeletal: Reports no additional musculoskeletal complaints Neurologic: Reports as per HPI PMFSH Past Medical History Medical History Rheumatoid arthritis Normal endoscopy Celiac disease GERD (gastroesophageal reflux disease) Surgical History Surgical History History of appendectomy History of endoscopy Family History Family History Mother Hypertension Father Liver cancer Grandparent Cerebrovascular accident Heart disease Diabetes mellitus Hypertension Social History Social History Smoking status: Never smoker Alcohol intake: never Substance use: never Substance use type: does not use Do You Feel Safe in your Home?: Yes Lack of Transportation: No Lack of Food: Never True Current Housing: I Have Housing Concerned About Future Housing: No Difficulty Paying Gas/Electric Bills: No Difficulty Paying for Meds: No Currently Unemployed: No Education: Grade School Difficulty w/ Childcare or Family Care: No Living arrangements: with family Occupation/Education: occupation Gender identity (if verbalized by the patient): Female Sexual Orientation (if Verbalized by the Patient): Straight or Heterosexual Exam Narrative: GENERAL: Well-appearing, well-nourished, and in no acute distress. HEAD: Normocephalic, atraumatic. EYES: PERRLA and EOMI. ENT: Nares clear, no rhinorrhea or epistaxis. Mucous membranes moist. NECK: Supple. CHEST: Clear to auscultation. No respiratory distress. HEART: Regular rate and rhythm. No murmur heard. Normal peripheral pulses. ABDOMEN: Soft, nontender, nondistended, normal active bowel sounds. EXTREMITIES: Normal range of motion. No edema. SKIN: Warm, dry, no rash. NEURO: No focal deficits. Alert and oriented x3. patient was able to ambulate, she was able to hold a phone in her PSYCH: Normal mood and affect. Course Course Emergency Course: patient was taken to CT scan of the head, she was able to get out of the gurney and walked to the CT scanner without any difficulty. Soon after she got back to the room she was comfortably sitting on the bed home with her phone. I informed her about the lab work and CT findings. I discussed with Dr. Galicia . pts mother was here ,she no longer wants to wait and walked out. Vital Signs Vital signs: Vital Signs Pulse Rate 67 08/23/25 13:29 Respiratory Rate 18 08/23/25 13:29 Blood Pressure 110/59 L 08/23/25 13:29 Pulse Oximetry 98 08/23/25 13:29 Pulse Rate 61 08/23/25 16:36 Respiratory Rate 18 08/23/25 16:36 Blood Pressure 111/67 08/23/25 14:57 Pulse Oximetry 100 08/23/25 16:36 Oxygen Delivery Room Air 08/23/25 13:43 MDM - Neuro Symptoms/Deficit Differential Diagnosis Differential diagnosis: Likely cerebrovascular accident, transient cerebral ischemia and other ( anxiety) Medical Records Attestation: I reviewed the patient's medical records. Lab Data Attestation: I reviewed the patient's lab results. 08/23/25 13:42 08/23/25 13:42 Labs: Lab Results 08/23/25 08/23/25 Range/Units 13:29 13:42 WBC 10.9 H (4.5-10.0) K/mm3 RBC 3.76 L (4.2-5.4) M/mm3 Hgb 11.3 L (12.0-15.0) g/dL Hct 33.1 L (37.0-47.0) % MCV 88.0 (80-100) fl MCH 30.1 (26-34) pg MCHC 34.1 (32-36) g/dl RDW 13.2 (11.5-14.5) % Plt Count 155 (150-375) k/mm3 MPV 11.1 H (7.4-10.4) fl Immature Gran % (Auto) 0.8 H (0-0.5) % Neut % (Auto) 72.4 (45.5-73.1) % Lymph % (Auto) 21.5 (18.3-44.2) % Hartley % (Auto) 4.9 (2.6-8.5) % Eos % (Auto) 0.1 (0-4.4) % Baso % (Auto) 0.3 (0.2-1.2) % Lymph # (Auto) 2.34 (0.9-3.2) K/mm3 Hartley # (Auto) 0.5 (0.1-0.6) K/mm3 Eos # (Auto) 0.0 (0-0.3) K/mm3 Baso # (Auto) 0.0 (0.0-0.1) K/mm3 Abs Immat Gran (auto) 0.09 H (0.00-0.031) K/mm3 Absolute Neuts (auto) 7.9 H (1.3-6.7) K/mm3 Absolute Nucleated RBC 0.000 (0.0-0.012) K/mm3 Nucleated RBC % 0.0 (0.0-0.2) % PT 13.2 (11.1-14.7) Seconds INR 1.0 APTT 28.5 (22.3-36.8) Seconds Sodium 134 L (137-145) mmol/L Potassium 3.4 (3.4-5.0) mmol/L Chloride 107 (98-107) mmol/L Carbon Dioxide 20 L (22-30) mmol/L Anion Gap 7 (4-12) mmol/L BUN 5 L (7-17) mg/dL Creatinine 0.46 L (0.7-1.0) mg/dL Estim Creat Clear Calc 174 ml/min Estimated GFR > 60 (59 - ) Glucose 86 (65-110) mg/dL POC Capillary Glucose 101 (65-105) mg/dl Calcium 8.5 (8.4-10.2) mg/dL Total Bilirubin 0.4 (0.2-1.3) mg/dL AST 17 (14-36) U/L ALT 11 (6-35) U/L Alkaline Phosphatase 85 (38-126) U/L Troponin I < 0.012 (0.000-0.034) ng/mL Total Protein 7.2 (6.3-8.2) g/dL Albumin 3.8 (3.5-5.1) g/dL Imaging Data Radiologist's impression: ITS Impressions Head CT 08/23/25 13:36 IMPRESSION: 1. Normal head CT. Chest X-Ray 08/23/25 14:10 IMPRESSION: 1. No focal acute process. Discharge Plan Discharge Clinical Impression: Right sided numbness, Conversion disorder Patient Disposition: Home Condition: Stable Instructions: Antibiotic Form Additional Instructions: contiunue home medications, follow with your doctor. Patient Language: [place] Prescriptions: No Action albuterol sulfate 90 mcg/actuation HFA aerosol inhaler 1 inh inhalation QID PRN (Reason: shortness of breath or wheezing) Qty: 8.5 0RF Classic 28 mg iron- 800 mcg tablet 1 tablet PO DAILY Qty: 90 1RF ondansetron 4 mg tablet,disintegrating 4 mg PO Q8H famotidine 20 mg tablet 20 mg PO DAILY Qty: 30 0RF Abrysvo (PF) 120 mcg/0.5 mL recon soln 0.5 ml IM ONCE Qty: 1 0RF Rx Instructions: as a single dose Follow-up/Referrals: Becca,Sadie Aldana MD [Primary Care Provider] Stuart Loomis MD [Physician, RN INTERVENTIONAL] Time of Disposition: 16:07 Quality Stroke Date of last known normal: 08/23/25 Stroke Scale Stroke Scale 1: Stroke scale date:: 08/23/25 Stroke scale time:: 13:43 1a Level of consciousness: alert-0 1b Level of consciousness questions: answers both correctly-0 1c Level of consciousness commands: obeys both correctly-0 2 Best gaze: normal-0 3 Visual: no visual loss-0 4 Facial palsy: normal-0 5a Motor: left arm: no drift-0 5b Motor: right arm: no drift-0 6a Motor: left leg: no drift-0 6b Motor: right leg: no drift-0 7 Limb ataxia: absent-0 8 Sensory: normal-0 9 Best language: no aphasia-0 10 Dysarthria: normal-0 11 Extinction and inattention: no abnormality-0 Level:: 0
== END 2025-08-23 16:28 | disposition home or self-care (01) ==
PROVIDERS: Emergency Provider Family Medicine; PCP Internal Medicine Gastroenterology
DX: O99.343 Other mental disorders complicating pregnancy, third trimester (principal); F44.6 Conversion disorder with sensory symptom or deficit; O99.891 Other specified diseases and conditions complicating pregnancy; M06.9 Rheumatoid arthritis, unspecified; O99.613 Diseases of the digestive system complicating pregnancy, third trimester; K21.9 Gastro-esophageal reflux disease without esophagitis; K90.0 Celiac disease; Z3A.32 32 weeks gestation of pregnancy; R00.1 Bradycardia, unspecified; R94.31 Abnormal electrocardiogram [ECG] [EKG]
CPT/HCPCS: 36415; 70450; 71045; 80053; 82948; 84484; 85025; 85610; 85730; 93005; 99284

== ENCOUNTER 2025-09-27 15:02 | Observation (INO) | payer OTHER, SELFPAY ==
[2025-09-27 14:50] VITALS: BP 123/78; PULSE 68; RESP 16; TEMP 36.5; O2SAT 98
[2025-09-27 15:26] VITALS: BP 135/88; PULSE 63
[2025-09-27 15:31] VITALS: BP 128/81; PULSE 85
[2025-09-27 15:46] VITALS: BP 127/80; PULSE 71
[2025-09-27 16:05] VITALS: BMI 35.1
--- NOTE | 2025-09-27 16:05 | OBADM ---
This patient, Anand Rasheed, admitted to the OB room Labor/Delivery/Recovery 106 for observation. Patient/family oriented to hospital policies and general routines including ID bracelet, bed and alarms, visiting hours, pain management, procedures, bathroom and other care routines, personal items, smoking policy, room service/diet, and visiting hours. Patient/Family are encouraged to report perceived risks to care and to ask questions if they do not understand what they are told or what they should do.
[2025-09-27 17:06] LABS: Add Urine Microscopic? NO; Appearance Urine Clear (Clear); Glucose Urine UA Negative (Negative); Leukocyte Esterase Ur Negative LEU/UL (Negative); Nitrate Urine Negative (Negative); Specific Grav Ur 1.013 (1.001-1.035)
[2025-09-27 17:25] LABS: Cannabinoid Screen Urine Positive (Negative)
--- NOTE | 2025-10-23 20:39 | PM.OBTRLD ---
OB - Triage/Final Diagnosis Visit Information Comments/Additional reasons for admission: I have assessed the risk for this patient, Anand Rasheed, and determined that she would benefit from observation care. Evaluation Laboratory results: Laboratory Tests 09/27/25 16:49 Urine Color Yellow Urine Appearance Clear Urine pH 8.0 Ur Specific [place] 1.013 Urine Protein Negative Urine Glucose (UA) Negative Urine Ketones Negative Ur Blood (Man) Negative Urine Nitrate Negative Urine Bilirubin Negative Urine Urobilinogen 0.2 Leukocyte Esterase Rfl Negative Urine Opiates Screen Negative Urine Methadone Screen Negative Ur Barbiturates Screen Negative Ur Phencyclidine Scrn Negative Ur Amphetamine Screen Negative U Benzodiazepines Scrn Negative Urine Cocaine Screen Negative U Cannabinoids Screen Positive A Final Diagnosis (1) False labor: Code(s): O47.9 - False labor, unspecified Status: Acute
== END 2025-09-27 17:44 | disposition home or self-care (01) ==
PROVIDERS: Admitting Provider Student in an Organized Health Care Education/Training Program; PCP Internal Medicine Gastroenterology; Visit Provider Obstetrics & Gynecology
DX: O47.1 False labor at or after 37 completed weeks of gestation (principal); Z3A.37 37 weeks gestation of pregnancy
CPT/HCPCS: 80307; 81003; G0378; G0379

== ENCOUNTER 2025-09-28 15:16 | Observation (INO) | payer OTHER, SELFPAY ==
--- NOTE | 2025-09-28 15:16 | OBADM ---
This patient, Anand Rasheed, admitted to the OB room Labor/Delivery/Recovery 107 for observation. Patient/family oriented to hospital policies and general routines including ID bracelet, bed and alarms, visiting hours, pain management, procedures, bathroom and other care routines, personal items, smoking policy, room service/diet, and visiting hours. Patient/Family are encouraged to report perceived risks to care and to ask questions if they do not understand what they are told or what they should do.
[2025-09-28 15:30] VITALS: BMI 33.7
--- OUTSIDE RECORDS SUMMARY | 2025-09-28 16:39 | XMS_ITS | Data Portability ---
Author Organization [facility] Address [address] [place] [address] Care Team Providers Care Rubber Off Name Role Phone KHANG CASTRO Superintendent Police [phone] Assessment Encounter Date Assessment Date Assessment LastModified by Organization Details LastModified Time 03/19/2022 03/19/2022 has MAGNET PLACER appt (Carol soon for contraception Not available 03/19/2022 20:01:43 08/26/2022 08/26/2022 17yo female G0 who presents to the clinic with mother for control follow up. She was started on OCPs, Lo Loestrin, ~3 months ago and reports abnormal bleeding. She would like to discuss options. Not available 08/30/2022 16:01:02 Plan of Treatment Reminders Order Date Submit Date Provider Last Modified By Organization Details Last Modified Time Details Appointments None recorded. Lab rapid strep group A, throat 2022 023 In-Office Order, Internal Use Only DO Not Attach Compendium DO Not Attach Compendium, Do Not Delete/merge, [id number] 3 12:20:01 streptoco ccus group A, culture, throat 2022 023 [facility], [address], [address], [place], [address], 3 06:53:56 chlamydia trachomat is + neisseria gonorrhoe ae + trichomon as vaginalis DNA panel, BRANDON+probe , unspecifi ed specimen 2021 [facility], [address], [address], [place], [address], 05:08:38 test, urine 2021 [email or web address] 1 In-Office Order, Internal Use Only DO Not Attach Compendium DO Not Attach Compendium, Do Not Delete/merge, [id number] 15:58:00 Referral pediatric gastroent erologist referral - h/o celiac disease, not seen since 2017? 2021 [facility], [address] [place] [address], [address], 12:20:55 pediatric rheumatol ogist referral - last seen 01/22/192021 [facility] (Rheumatology ), [address] [place], [address], 12:20:25 Procedures None recorded. Surgeries None recorded. Imaging None recorded. Medication Orders famotidin e 20 mg tablet [address] [facility] [place], [address], 3 14:36:47 Xulane 150 mcg-35 mcg/24 hr transderm al patch [address] [facility], [address] [place], [address], 3 14:37:31 Lo Loestrin Fe 1 mg-10 mcg (24)/10 mcg (2) tablet [address] [facility] [address] [place], [address], 14:37:45 Focalin XR 10 mg capsule,e xtended release 2021 022 [facility] [place], [address], 14:59:30 Patient TargetsNo targets recorded. Patient Instructions Encounter Date Encounter Id Patient Instructions Last Modified By Organization Details Last Modified Time 03/19/2022 [id number] patient health questionnaire modified for adolescents* Not available 03/19/2022 14:54:45 05/26/2022 [id number] painful menstrua l cramps in teens: care instructions Not available 05/26/2022 15:18:04 08/29/2023 [id number] celiac disease i n children: care instructions [email or web address] Not available 08/29/2023 14:54:56 Reason for Referral Pediatric Undercover Cop Referral for Celiac disease h/o celiac disease, not seen since 2016? Referring Physician: Ava Faust Pediatric Medicine, Encounter Date: 03/19/2022 Pediatric Grain Broker And Market Operator Ref erral for Arthritis last seen 01/22/19 Referring Physician: Ava Faust Pediatric [facility], Encounter Date: 03/19/2022 Results Created Date Observation Date Name Description Value Unit Range Abnormal Flag Note LastModifiedBy Organization Detail LastModifiedTime 01/07/2001/10/2023 CBC w/ auto diff complete metabolic panel normal Not Available [address]ha[address], [place], [address], 01/06/2023 10:22:44 01/07/20 23 01/10/2023 CBC w/ auto diff CBC normal Not Available [address], [place], [address], 01/06/2023 10:22:44 05/26/20 22 05/28/2022 CT, NG, TRICH VAG BY BRANDON chlamydia by BRANDON NEGATI VE negati ve Not Available [facility] ([facility]) [address] [facility], [place], [address], 05/28/2022 05:08:38 05/26/20 22 05/28/2022 CT, NG, TRICH VAG BY BRANDON gonococcus by BRANDON NEGATI VE negati ve Not Available [facility] ([facility]) [address] [place], [address], 05/28/2022 05:08:38 05/26/20 22 05/28/2022 CT, NG, TRICH VAG BY BRANDON trich vag by BRANDON NEGATI VE negati ve Not Available [facility] ([facility]) [address] [facility], [place], [address], 05/28/2022 05:08:38 05/26/20 22 05/26/2022 pregn leonardo test, urine HCG negati ve Not Available In-Office Order Internal Use Only DO Not Attach Compendium DO Not Attach Compendium, Do Not Delete/merge, [id number] 05/26/2022 15:41:05 12/09/19 23 12/12/2022 BETA STREP GP A CULTU RE beta strep gp A culture Negati ve Refer ence Range : Negat reagan Not Available [facility] ([facility]) [address] [facility], [place], [address], 12/12/2022 06:53:56 12/09/1912/09/2022 rapid strep group A, throa t Strep negati ve Not Available In-Office Order Internal Use Only DO Not Attach Compendium DO Not Attach Compendium, Do Not Delete/merge, [id number] 12/09/2022 11:58:07 01/07/2001/06/2023 CMP, serum or plasm a complete metabolic panel normal Not Available Keyshawn [address], [place], [address], 01/06/2023 07:52:37 01/07/20 23 01/06/2023 CMP, serum or plasm a CBC normal Not Available [address], [place], [address], 01/06/2023 07:52:37 04/01/20 04/01/2022 CT, abdom en + pelvi s, w/o contr ast No observ ation record ed. [address] [address], [place], [address], 04/01/2022 12:13:06 06/25/20 22 06/25/2022 XR, chest , 2 view No observ ation record ed. [email or web address] [address] [facility], [place], [address], 08/26/2022 15:58:31 10/11/20 22 10/11/2022 XR, chest , 2 view No observ ation record ed. [address] [address], [place], [address], 10/20/2022 09:06:45 10/11/20 22 10/11/2022 CT, abdom en + pelvi s, w/ contr ast No observ ation record ed. [address] [address], [place], [address], 10/20/2022 09:06:46 10/13/20 22 10/11/2022 elect subhash gary am No observ ation record ed. [address] (Resp Services) [address] [place] [address], [place], [address], 10/20/2022 09:06:46 06/11/20 23 06/11/2023 XR, knee No observ ation record ed. [address] [facility], [place], [address], 06/15/2023 02:15:18 06/29/20 23 06/29/2023 CT, head, w/o contr ast No observ ation record ed. [address], [place], [address], 06/29/2023 12:26:47 06/29/20 23 06/29/2023 CT, cervi jose e spine , w/o contr ast No observ ation record ed. [address], [place], [address], 06/29/2023 12:26:48 06/29/2006/29/2023 XR, hip + pelvi s, bilat eral, 3 or 4 view No observ ation record ed. [address], [place], [address], 06/29/2023 12:26:48 06/29/20 23 06/29/2023 XR, chest , 1 view No observ ation record ed. [address] [facility], [place], [address], 06/29/2023 12:26:49 07/24/2007/24/2023 CT, abdom en + pelvi s, w/ contr ast No observ ation record ed. [address] [facility], [place], [address], 07/25/2023 05:30:00 04/07/20 25 04/07/2025 US, obste tric, 1st trime ster No observ ation record ed. [address] [facility], [place], [address], 04/08/2025 15:11:44 06/26/20 25 06/26/2025 US, obste tric No observ ation record ed. [address] [facility], [place], [address], 07/05/2025 09:44:43 08/23/2008/23/2025 CT, brain , w/o contr ast No observ ation record ed. [address] [facility], [place], [address], 09/10/2025 21:18:06 08/23/20 25 08/23/2025 XR, chest No observ ation record ed. [address] [facility], [place], [address], 09/10/2025 21:18:06 Result Notes None recorded. Problems Name Problem SNOMED Code Status Onset Date Resolution Date Notes Provider Name and Address Organization Details Recorded Time Obstructive sleep apnea syndrome 69857580 Active 2013 Ava Faust MD Attn: Minnie carmichael,[address] [facility], [place], [address], [place] [facility] 2 19:39:29 Arthritis 2089781 Active 2020 Ava Faust MD Attn: Minnie g,[address] [facility], [place], [address], [place] [facility] 2 19:30:09 Anxiety 10667225 Active 2020 Ava Faust MD Attn: Minnie carmichael,[address] [facility], [place], [address], [place] [facility] 2 19:30:06 Depressive disorder 82947356 Active 2020 Ava Faust MD Attn: Minnie carmichael,[address] [facility], [place], [address], [place] [facility] 2 19:29:57 Nail biting 67484102 Active 2021 Ava Faust MD Attn: Minnie carmichael,[address] [facility], [place], [address], [place] [facility] 2 19:30:12 Attention deficit hyperactivity disorder 386071877 Active 2021 Ava Faust MD Attn: Minnie carmichael,[address] [facility], [place], [address], [place] [facility] 2 19:30:06 Childhood obesity 018015290 Active 2021 Ava Faust MD Attn: Minnie carmichael,[address] [facility], [place], [address], [place] [facility] 2 19:56:54 Celiac disease 780924950 Active 2021 Ava Faust MD Attn: Minnie carmichael,[address] [facility], [place], [address], [place] [facility] 2 19:56:48 Adult health examination Active 2022 Sadie Mckeon MD Attn: Minnie carmichael,[address] [facility], [place], [address], [place] [facility] 3 14:51:52 History of appendectomy 202839741 Active 2022 Sadie Mckeon MD Attn: Minnie carmichael,[address] [facility], [place], [address], [place] - [facility] 3 14:52:13 Rheumatoid arthritis 88465331 Active 2022 Sadie Mckeon MD Attn: Minnie carmichael,[address] [facility], [place], [address], [facility] - [facility] 3 14:52:56 Problem Notes None recorded. Procedures Surgical History Date Name Laterality Status Provider Name and Address Organization Details Recorded Time endoscopy completed Jenneo Dalal [place] - [facility] 16:09:16 Imaging Results None recorded. Procedure Notes None recorded. Medical Equipment None Reported. Allergies Allergen ID Allergen Name Allergen Category Reaction Reaction Severity Criticality Documentation Date Start Date Code Code System Note Provider Name and Address Organization Details Recorded Time 162473 tramadol medicatio n nausea Not available Not available 10/22/2020 71130 RxNorm Ava Faust MD Attn: Minnie carmichael,[address] [facility], [place], [address], [place] - [facility] 2 15:03:07 140486 wheat gluten extract food abdominal pain Not available high 05/26/2022 74939 81 RxNorm Rose Phillips MA [facility], [place] - [facility] 2 14:59:00 Medications Name Sig Start Date Stop Date Status Note LastModified by Organization Details LastModified Time trazodone 50 mg tablet active Not Available Not Available Not Available cetirizin e 10 mg tablet 07/10 completed Not Available Not Available Not Available benzonata te 200 mg capsule TAKE 1 CAPSULE BY MOUTH 3 TIMES A DAY NEEDED FOR COUGH 12/09 completed Not Available Not Available Not Available hydrocodo ne 5 mg-acetam inophen 325 mg tablet TAKE 1 TABLET BY MOUTH THREE TIMES DAILY 03/19 completed Not Available Not Available Not Available meloxicam 15 mg tablet TAKE 1 TABLET BY MOUTH EVERY DAY 10/22 completed Not Available Not Available Not Available ondansetr on HCl 4 mg tablet 04/03 completed Not Available Not Available Not Available famotidin e 40 mg tablet TAKE 1 TABLET BY MOUTH ONCE DAILY active Not Available Not Available No t Available prednison e 20 mg tablet 12/09 completed Not Available Not Available Not Available sertralin e 100 mg tablet TAKE 1 TABLET BY MOUTH EVERY NIGHT AT BEDTIME 10/22 completed Not Available Not Available Not Available omeprazol e 40 mg capsule,d elayed release TAKE 1 CAPSULE BY MOUTH ONCE DAILY BEFORE BREAKFAS T active Not Available Not Available No t Available oxycodone -acetamin ophen 5 mg-325 mg tablet TAKE 1 TABLET BY MOUTH EVERY 4 HOURS NEEDED FOR PAIN active Not Available Not Available No t Available citalopra m 20 mg tablet TAKE 1 TABLET BY MOUTH EVERY DAY 10/22 completed Pt. stated that she hasn't been taking this medicati on Not Available Not Available Not Available famotidin e 20 mg tablet TAKE 1 TABLET BY MOUTH AT BEDTIME 08/29 completed Not Available Not Available Not Available omeprazol e 20 mg capsule,d elayed release TAKE 1 CAPSULE BY MOUTH ONCE DAILY FOR 2 WEEKS 08/29 completed Not Available Not Available Not Available diclofena c sodium 75 mg tablet,de layed release TAKE 1 TABLET BY MOUTH TWICE DAILY WITH FOOD 10/22 completed Not Available Not Available Not Available pseudoeph edrine 30 mg tablet 12/09 completed Not Available Not Available Not Available ibuprofen 600 mg tablet TAKE 1 TABLET BY MOUTH EVERY 6 HOURS NEEDED FOR PAIN 05/26 completed Not Available Not Available Not Available albuterol sulfate HFA 90 mcg/actua tion aerosol inhaler INHALE 1 PUFF BY MOUTH 4 TIMES A DAY NEEDED FOR SHORTNES S OF BREATH OR WHEEZING 08/29 completed Not Available Not Available Not Available lysine 500 mg tablet Take 1 tablet 3 times a day by oral route. 03/09 completed OTC Not Available Not Available Not Available Zoloft 25 mg tablet active Not Available Not Available No t Available ondansetr on 4 mg disintegr ating tablet DISSOLVE 1 TABLET IN MOUTH EVERY 8 HOURS NEEDED FOR NAUSEA AND VOMITING active Not Available Not Available No t Available cefdinir 300 mg capsule TAKE 1 CAPSULE BY MOUTH EVERY 12 HOURS active Not Available Not Available No t Available fluticaso ne propionat e 50 mcg/actua tion nasal spray,silvio pension 04/03 completed Not Available Not Available Not Available naproxen 500 mg tablet TAKE 1 TABLET BY MOUTH TWICE DAILY active Not Available Not Available No t Available amoxicill in 875 mg-potass ium clavulana te 125 mg tablet TAKE 1 TABLET BY MOUTH EVERY 12 HOURS FOR 7 DAYS active Not Available Not Available No t Available hydroxyzi ne pamoate 25 mg capsule TAKE 1 CAPSULE BY MOUTH EVERY 4 HOURS NEEDED active Not Available Not Available No t Available nitrofura ntoin monohydra te/macroc rystals 100 mg capsule TAKE 1 CAPSULE BY MOUTH EVERY 12 HOURS; ADMINIST ER WITH MEAL/CAROLINE D 12/09 completed Not Available Not Available Not Available Focalin XR 10 mg capsule,e xtended release Take 1 capsule every day by oral route. 05/26 completed Not Available Not Available Not Available Lo Loestrin Fe 1 mg-10 mcg (24)/10 mcg (2) tablet Take 1 tablet every day by oral route. 08/29 completed Not Available Not Available Not Available Zafemy 150 mcg-35 mcg/24 hr transderm al patch APPLY 1 PATCH TOPICALL Y ONCE A WEEK FOR 3 WEEKS, THEN SKIP 1 WEEK 08/29 completed Not Available Not Available Not Available Vitals Date Recorded Body weight Body temperature Provider N mechelle and Address Organization Details Last Updated DateTime 12/09/2022 22513.95 g 98.6 [degF] Rita Valdovinos [place] - [facility] 12/09/2022 11:50:39 Date Recorded Body height Body mass index (BMI) Body mass index (BMI) [Percentile] Per age and sex Body weight Oxygen saturation Heart rate Body temperature Systolic And Diastolic Provider Name and Address Organization Details Last Updated DateTime 162.56 cm 31.3 kg/m2 96 % 59360.6 1 g 97 % 61 /min 98.6 [degF] 100/62 mm[Hg] Rita Valdovinos MA [facility] 2 14:44:48 Date Recorded Body weight Body mass index (BMI) Body mass index (BMI) [Percentile] Per age and sex Body height Systolic And Diastolic Provider Name and Address Organization Details Last Updated DateTime 05/26/2022 99328.7 g 29.2 kg/m2 94 % 162.56 cm 112/66 mm[Hg] Rose Phillips MA [facility] 2 14:56:59 Date Recorded Body height Body mass index (BMI) Body mass index (BMI) [Percentile] Per age and sex Body weight Systolic And Diastolic Provider Name and Address Organization Details Last Updated DateTime 08/26/2022 162.56 cm 29.9 kg/m2 95 % 05723.0 7 g 106/60 mm[Hg] Judith Reyna MA [facility] 2 15:42:50 Date Recorded Body height Body mass index (BMI) Body mass index (BMI) [Percentile] Per age and sex Body weight Body temperature Oxygen saturation Heart rate Systolic And Diastolic Provider Name and Address Organization Details Last Updated DateTime 3 162.56 cm 29.2 kg/m2 93 % 20168.7 g 98.1 [degF] 98 % 100 /min 110/76 mm[Hg] Uzma Munguia MA [facility] 3 14:12:36 Social History Question Answer Notes LastModified by Organizat ion Details LastModified Time Tobacco Smoking Status Never Smoker Ivory Edouard MA [facility], [facility] 04/09/2020 14:45:22 What Is Your Level Of Caffeine Consumption? Moderate Soda Information not available 04/09/2020 What Type Of Diet Are You Following? GLUTENFREE Information not available 03/19/2022 What Is Your Home Situation? Both Parents Information not available 04/09/2020 Do You Use Insect Repellent Routinely? Yes Information not available 04/09/2020 What Was The Date Of Your Most Recent Tobacco Screening? 08/29/2023 Information not available 08/29/2023 What Is Your Parents' Marital Status? Information not available 04/09/2020 Do You Have Any Siblings? 4 Siblings Information not available 04/09/2020 Do You Have Smoke And Carbon Monoxide Detectors In Your Home? Yes Information not available 04/09/2020 Are You Passively Exposed To Smoke? No Information not available 04/09/2020 How Much Tobacco Do You Smoke? No Information not available 04/09/2020 Do You Use Sunscreen Routinely? Yes Information not available 04/09/2020 Has Tobacco Cessation Counseling Been Provided? No Information not available 08/29/2023 On What Date Was Tobacco Cessation Counseling Provided? 08/29/2023 Information not available 08/29/2023 How Many Years Have You Smoked Tobacco? 0 Information not available 04/09/2020 Are You Currently In School? No Dropped Out [email or web address] Information not available 03/19/2022 Sex: Female Functional Status Question Answer Note LastModified by Organizat ion Details LastModified Time Do you or have you ever used any other forms of tobacco or nicotine? No Information not available 08/29/2023 Do you or have you ever used smokeless tobacco? Never used smokeless tobacco Information not available 04/09/2020 Do you or have you ever used e-cigarettes or vape? Never used electronic cigarettes Information not available 04/09/2020 Mental Status Question Answer Note LastModified by Organization D etails LastModified Time Are you or have you been involved with bullying? Yes Information not available 03/19/2022 Family History Relationship Description Onset Age of this Age Resolved Age Notes LastModified by Organization Details LastModified Time Father Type B viral hepatitis [email or web address] Not available 2018 16:05:49 Father Malignant neoplasm of liver [email or web address] Not available 2018 16:06:09 Maternal Grandfather Hypertensive disorder [email or web address] Not available 2018 16:06:36 Maternal Grandmother Hypertensive disorder [email or web address] Not available 2018 16:07:10 Maternal Grandmother Diabetes mellitus [email or web address] Not available 2018 16:07:44 Paternal Grandfather Hypertensive disorder [email or web address] Not available 2018 16:07:26 Mother Insomnia [email or web address] Not availab le 04/09/2020 14:45:14 Mother Hypertensive disorder Mother used to have it but no longer has it [email or web address] Not available 10/22/2020 12:51:55 Mother Endometritis sdevriesma Not olga ilable 10/22/2020 12:52:20 Medical History Condition Response Coronary Artery Disease N Other N High Blood Pressure N Atrial Fibrillation N Kidney or Bladder Problems N Thyroid Problems N GI Problems Y Depression Y COPD N Blood Clots N Skin Problems N Eating Disorder N Anemia N Heart Attack (OK) N Anxiety Disorder Y Diabetes N Muscle, Joint, or Bone Problems Y Seizures/Epilepsy N Acid Reflux (GERD) Y Cancer N Stroke N Asthma N Allergies Y ADHD Y Substance Abuse N High Cholesterol N Hepatitis N Liver Disease N Schizophrenia N Headaches Y Osteoporosis N Heart Failure N Gynecological History Statement/Question Response Flow Heavy Date of LMP 08/14/2022 Frequency of Cycle (Q days) 30 Menses Monthly N Duration of Flow (days) 5 Age at Menarche 13 Current Control Method BCPs LMP Approximate Obstetrics History GPAL:G 0 P 0 0 0 0 Type Value Multiple Births 0 Full Term 0 Induced 0 Spontaneous 0 Premature 0 Living 0 Ectopics 0 Total 0 Immunizations Vaccine Type Date Status Note Provider Nam e and Address Organization Details Recorded Time Hib, unspecified formulation 5 completed CHACHO [place], [place] - [facility] 04/09/2020 15:01:03 Hib, unspecified formulation 5 completed CH[place] [facility] 04/09/2020 15:01:07 Hib, unspecified formulation 5 CHACHO [place] [facility] 04/09/2020 15:01:13 Hib, unspecified formulation 7 CHACHO [place] [facility] 04/09/2020 15:01:19 influenza, unspecified formulation 7 CHACHO [place] [facility] 04/09/2020 15:03:54 influenza, unspecified formulation 8 CHACHO [place] [facility] 04/09/2020 15:03:58 MMR 6 completed Ivory Edouard [place], [place] [facility] 04/09/2020 15:04:42 MMR 0 completed Ivory Edou[place], [place] [facility] 04/09/2020 15:04:47 Tdap 6 completed Ava Faust MD Attn: Accounting,[address] [facility], [place], [place], [address] [place] [address], [place] [facility] 12/09/2022 14:12:39 varicella 6 completed Ivory Edou[place], [place] [facility] 04/09/2020 15:06:33 varicella 0 completed Ivory Edou[place] [facility] 04/09/2020 15:06:36 HPV9 7 completed Ava Faust MD Attn: Accounting,[address] [facility], [place], [place], [address] [place] [address], [place] [facility] 12/09/2022 14:12:39 HPV9 6 completed Ava Faust MD Attn: Accounting,[address] [facility], [place], [address] [place] [address], [place] [facility] 12/09/2022 14:12:39 pneumococcal conjugate PCV 7 5 completed Ava Faust MD Attn: Accounting,[address] [facility], [place], [address] [place] [address], [place] [facility] 12/09/2022 14:12:39 pneumococcal conjugate PCV 7 6 completed Ava Faust MD Attn: Accounting,[address] [facility], [place], [address] [place] [address], [place] [facility] 12/09/2022 14:12:39 pneumococcal conjugate PCV 7 5 completed Ava Faust MD Attn: Accounting,[address] [facility], [place], [address] [place] [address], [place] [facility] 12/09/2022 14:12:39 pneumococcal conjugate PCV 7 5 completed Ava Faust MD Attn: Accounting,[address] [facility], [place], [address] [place] [address], [place] [facility] 12/09/2022 14:12:39 DTaP-IPV 0 completed Ava Faust MD Attn: Accounting,[address] [facility], [place], [address] [place] [address], [place] [facility] 12/09/2022 14:12:39 Hep B, adolescent or pediatric 5 completed Ava Faust MD Attn: Accounting,[address] [facility], [place], [address] [place] [address], [place] [facility] 12/09/2022 14:12:40 Hep A, pediatric, unspecified formulation 8 completed Ava Faust MD Attn: Accounting,[address] [facility], [place], [address] [place] [address], [place] [facility] 12/09/2022 14:12:40 Hep A, pediatric, unspecified formulation 7 completed vAa Faust MD Attn: Accounting,[address] [facility], [place], [address] [place] [address], [place] [facility] 12/09/2022 14:12:40 Meningococcal MCV4O 6 completed Ava Faust MD Attn: Accounting,[address] [facility], [place], [address] [place] [address], [place] [facility] 12/09/2022 14:12:40 DTaP 7 completed Ava Faust MD Attn: Accounting,[address] [facility], [place], [address] [place] [address], [place] [facility] 12/09/2022 14:12:40 DTaP-Hep B-IPV 5 completed Ava Faust MD Attn: Accounting,[address] [facility], [place], [address] [place] [address], [place] [facility] 12/09/2022 14:12:40 DTaP-Hep B-IPV 5 completed Ava Faust MD Attn: Accounting,[address] [facility], [place], [address] [place] [address], [place] [facility] 12/09/2022 14:12:40 DTaP-Hep B-IPV 5 completed Ava Faust MD Attn: Accounting,[address] [facility], [place], [place], [address] [place] [address], [facility] 12/09/2022 14:12:40 Influenza, live, quadrivalent, intranasal 4 completed Ava Faust MD Attn: Accounting,20 [address] [facility], [place], [place], [address] [place] [address], [place] [facility] 12/09/2022 14:12:40 Influenza, live, quadrivalent, intranasal 5 completed Ava Faust MD Attn: Accounting,20 [address] [facility], [place], [place], [address] [place] [address], [facility] 12/09/2022 14:12:40 Influenza, live, quadrivalent, intranasal 1 completed Ava Faust MD Attn: Accounting,20 [address] [facility], [place], [place], [address] [place] [address], [place] [facility] 12/09/2022 14:12:40 Influenza, live, quadrivalent, intranasal 9 completed Ava Faust MD Attn: Accounting,20 [address] [facility], [place], [place], [address] [place] [address], [place] [facility] 12/09/2022 14:12:40 Influenza, live, quadrivalent, intranasal 0 completed Ava Faust MD Attn: Accounting,20 [address] [facility], [place], [address] [place] [address], [place] [facility] 12/09/2022 14:12:40 Influenza, split virus, quadrivalent, PF 7 completed Ava Faust MD Attn: Accounting,20 [address] [facility], [place], [place], [address] [place] [address], [place] [facility] 12/09/2022 14:12:40 Influenza, split virus, quadrivalent, PF 2 completed Ava Faust MD Attn: Accounting,20 [address] [facility], [place], [address] [place] [address], [place] [facility] 12/09/2022 14:12:40 meningococcal MCV4P 2 completed Rita Valdvoinos MA [facility], [place] [facility] 03/19/2022 15:15:29 Past Encounters Encounter ID Performer Location Encounter Start Date Encounter Closed Date Diagnosis/Indication Diagnosis SNOMED-CT Code Diagnosis ICD10 Code Diagnosis IMO Codes Diagnosis Note [id number] Venessa Griggs MD [facility] [address] [place] [address] 07/10/2019 15:40:33 07/16/2019 09:02:53 Pain in left knee 9606060859 74450 M25.562 Depressive disorder 3548 9007 F32.1 recommende d follow up with Khaogerman HenaoPatrice Celiac disease 690777623 K90.0 [id number] Venessa Griggs MD [facility] [address] [place] [address] 04/09/2020 11:21:48 04/14/2020 15:02:58 Depressive disorder 41263544 F32.1 recommende d follow up with Shalom Henaolabi Muscle pain 80826056 M79 .10 [id number] Venessa Griggs MD [facility] [address] [place] [address] 10/22/2020 08:57:26 10/29/2020 08:37:38 Intermittent palpitations 480335253 R00.2 Attention deficit hyperactivity disorder 281159958 F90.9 i am hesitant to start add medicine until we have a negative test. I am also concerned about the potential for substance abuse in this situation. Osteoarthritis 747242716 M19.90 patient reportedly has pain in all parts of her body other than her face. Parents are pushing for her to get on hydrocodon e. (parents both take opiate pain medicines for documented physical illnesses. ) At [facility] risk of sexually transmitted infection 413367800 Z20.2 patient will be set up for a pelvic exam, STD tests, and control. Positive s creening for depression on PHQ-9 (Patient Health Questionnaire 9) 2625670194 [address] can also evaluate the ADHD situation and figure out what medication s may be helpful. Celiac disease 721072909 K90.0 discussed gluten free diet. [id number] MD Victor Hugo Glaser (Peds) [address] [place] [address] 03/19/2022 14:13:17 03/22/2022 13:45:02 Well child 490359440 Z00.129 Pleasant 17y1mo WF with several health problems as below.#2 Menactra - IUTD. Attention deficit hyperactivity disorder 122942896 F90.[address] Tracey in elementary school, tried on stimulant but side effects at higher dose and just stopped it, has progressed through school with average school grades, no repeating/ failing,wa nts to resume med to finish HS diploma,no info available in [place], but review of med history in [facility] shows Focalin (up to 30mg) until 2015, Adderall last documented 10/07/2017 .Intereste d in resuming at lowest Focalin dose. Nail biting 95196581 F98 .8 Arthritis 0382593 M19.90 Rheum 01/22/19: arthralgia (juv RA?), meloxicam, f/u 6m long overdue f/u, currently no significan t complaints , gave [facility] Rhe[facility] # to call & schedule (d/t both specialtie s being available at [facility] location) Childhood obesity 095932 003 Z68.54 E66.8 BMI 31.3 (96%ile),b ut not much change since 2018 Celiac disease 265206750 K90.0 GI 10/07/17: celiac, f/u 3-4m on gluten-marshal e diet (mostly),g ave [facility] # to call & schedule (d/t both specialtie s being available at [facility] location) Obstructiv e sleep apnea syndrome 11820216 G47.33 PSG 02/16/14: AHI 2.2 no current sleep issues Depressive disorder 3548 9007 F32.1 h/o depression & anxiety, PHQ 6 today, improved from prior screenings ,possibly d/t pt being out of school and bullying - major source of her depression /anxiety Anxiety 73998431 F41.9 Bullied at school 637186 004 Z60.5 h/o poor school attendance due to bullying, pt didn't feel supported by teachers (if anything, she feels they also were mean to her),dropp ed out last year and looking to finish home-norbert padgett with [employer] tut[employer] program, advised to see if pt qualifies for homebound via [facility], [id number] BUDDY MENDEZ (COOK CHILL TECHNICIAN) [address] [place] [address] 05/26/2022 14:44:40 05/26/2022 15:32:19 Contraception care management 670779131 Z30.9 Discussed different control options with patient including R/B/A/I. Pt interested in OCPs, rx Lo Lo. Counseled on use and SE. RTC in 3 months. Dysmenorrhea 433859582 N 94.6 NSAIDs around the clock during menses and OCPs as above. Venereal d isease screening 051277791 Z11.3 Safe sex practices discussed. [id number] BUDDY MENDEZ (COOK CHILL TECHNICIAN) [address] [place] [address] 08/26/2022 15:30:02 08/31/2022 09:39:25 Contraception care 287210163 Z30.9 Discussed different control options with patient including R/B/A/I. Pt interested in trying patches. Counseled on use and SE. RTC in 3 months. Acid reflux 299641700 K2 1.9 Requesting medication for acid reflux. Discussed limiting aggravatin g foods and staying upright after meals. Follow up with PCP. [id number] MD [facility] Hugo Glaser (Peds) [address] [place] [address] 0 12/09/2022 11:40:58 12/13/2022 11:44:56 Sore throat 752602109 J02.9 irritated & inflamed tonsils & post OP, not strongly s/o Strep,Rapi d strep negative - will send cx. Advised on supportive care in the meanwhile: 1. cold or warm beverages (e.g. hot chocolate; tea with honey or lemon)2. popsicles! 3. gargling with warm salt water4. lozenges5. ibuprofen/ tylenol prn [id number] MD [facility] Valladares (Adult Med) [address] [place] [address], [place] [address] 08/29/2023 13:55:36 09/21/2023 13:45:23 History of appendectomy 695085205 Z90.49 F/U surgery Adult heal th examination 139095196 Z00.00 Rheumatoid arthritis 698 81174 M06.9 F/U rheumatolo gy Celiac disease 778174848 K90.0 F/U GI Health Concerns Section Related Observation LastModified by Organization Detai ls LastModified Time None Recorded Concern Status LastModified by Organization Details LastModified Time None Recorded Advance Directives Directive None Recorded Payers Insurance Date Sequence Insurance Name Policy Number Policy Dunn Covered Member ID Dunn Member ID Guarantor Name 08/30/2023 1 [facility] PRIOR TO 04/16/2021 (MEDICAID REPLACEMENT - HMO) Anand Rasheed [id number] 04/08/2024 1 [facility] - DOS ON OR AFTER 21 (MEDICAID REPLACEMENT - HMO) Anand Rasheed [id number] Notes Date Note Type Note Provider Name and Address Organization Details Recorded Time 03/19/2022 text/html 17y1mo WF here for WCC - with mom.Previously followed by Dr Griggs at [place] location, but no WCC (used to see Dr Tracey before that). -Celiac disease: previously followed by GI, but hasn't been seen in a long time,tries to follow mostly gluten-free diet,was referred by Dr Griggs to re-establish 10/22/20, but mom never got a scheduling call? -Arthritis: RA? previously followed by Rheumatology, but hasn't been seen since COVID,intermittent joint pain, not debilitating Dropped of high school last year d/t pt struggling with bullying and anxiety.Would miss half a year: start new school year, bullying resumes, pt refuses to go, etcLooking into varsity tutors to finish HS.Wants to resume ADHD med to help? hasn't taken med since elementary school, reportedly stopped d/t pt feeling SEs at higher dose, wants to try lowest possible dose. Ava Faust MD Attn: Accounting,[address] [facility], [place], [address], [facility] 03/19/2022 20:02:11 05/26/2022 text/html ROS as noted in the HPI Ms. Rasheed is a 17-year-old female who presents to the clinic for control consult with complaints of dysmenorrhea. Her menstrual cycles are regular, but she explains that she has 10/10 pain in the 2 days before her period begins as well as in the first 2 days of her period. She endorses heavy flow. She is not currently sexually active. BUDDY MENDEZ Attn: Accounting, [address] [place], [address], [facility] 06/18/2022 14:43:58 08/26/2022 text/html ROS as noted in the HPI Ms. Rasheed is a 17-year-old female G0 who presents to the clinic with mother for control follow up. She was started on OCPs, Lo Loestrin ~3 months ago and reports abnormal bleeding. She states she had two periods in Jun and two in July. She is taking pill daily. She would like to discuss options. She also requests medication to help with acid reflux until she can get appointment with wood craftsman. Patient denies personal history of DVT/PE, HTN, cardiovascular disease, migraines, or seizures. She denies tobacco use. BUDDY MENDEZ Attn: Accounting, [address] [place], [address], [facility] 08/30/2022 16:03:00 12/09/2022 text/html ROS as noted in the HPI 17y9mo WF here for sore throat - with mom.Est with me 03/19/22; sees Ev at [facility] also. 2-days sore throat, looks red, mom saw some whitish spots on the side?1 NBNB emesis at onset, no nausea, no further emesis, no abd pain,but hurts to eat/drink/swallow.So me cough, a little stuffy nose. No fever. No JARRELL. Family went to local [place] festival this past weekend, there was a large gathering of people clustered. Ava Faust MD Attn: Accounting, [address] [place], [address], [facility] 12/09/2022 14:22:29 08/29/2023 text/html Here for adult health examination. Has been diagnosed with JRA and celiac disorder. Recent laparoscopic appendectomy. Sadie Mckeon MD Attn: Accounting,[address] [facility], [place], [address], [facility] 08/29/2023 14:56:15 OBGyn Episode No OBEpisode recorded.
--- OUTSIDE RECORDS SUMMARY | 2025-09-28 16:39 | XMS_ITS | Clinical Summary ---
Author Organization [facility] Address [address] [place] [address] Care Team Providers Care Retail Analytics Manager Name Role Phone Sadie Mckeon MD Primary [...] on file Legal Sex Female 11:19 AM SET UP MACHINIST Gender Identity Not on file Sexual Orientation Not on file Last Filed Vital Signs Vital Sign Reading Time Taken Comments Blood Pressure 104/68 10/27/2023 8:39 PM SET UP MACHINIST Pulse 112 10/27/2023 8:39 PM SET UP MACHINIST Temperature 36.4 C (97.6 F) 10/27/2023 8:39 PM SET UP MACHINIST Respiratory Rate 20 10/27/2023 8:39 PM SET UP MACHINIST Oxygen Saturation 100% 10/27/2023 8:39 PM SET UP MACHINIST Inhaled Oxygen Concentration - - Weight 77.1 kg (170 lb) 10/27/2023 8:39 PM SET UP MACHINIST Height 162.6 cm (5' 4) 10/27/2023 8:39 PM SET UP MACHINIST Body Mass Index 29.18 10/27/2023 8:39 PM SET UP MACHINIST Plan of Treatment Not on file Insurance [facility] Care Teams Retail Analytics Manager Relationship Specialty [place] [address] [place] [id number] PCP - General Gastroenterology 10/27/23
--- NOTE | 2025-10-23 20:41 | PM.OBTRLD ---
OB - Triage/Final Diagnosis Visit Information Comments/Additional reasons for admission: I have assessed the risk for this patient, Anand Rasheed, and determined that she would benefit from observation care. Final Diagnosis (1) False labor: Code(s): O47.9 - False labor, unspecified Status: Acute
== END 2025-09-28 17:09 | disposition home or self-care (01) ==
PROVIDERS: Admitting Provider Obstetrics & Gynecology; PCP Internal Medicine Gastroenterology; Visit Provider Obstetrics & Gynecology
DX: O47.03 False labor before 37 completed weeks of gestation, third trimester (principal); Z3A.37 37 weeks gestation of pregnancy
CPT/HCPCS: G0378; G0379

== ENCOUNTER 2025-10-10 16:33 | Inpatient (IN) | payer OTHER, SELFPAY ==
[2025-10-10] VITALS (107 sets, daily range): BP systolic 97–138; BP diastolic 56–89; PULSE 54–98; TEMP 36.6–36.8; O2SAT 97–100; BMI 36.5
[2025-10-10 17:12] LABS: Hematocrit 36.9 % (37.0-47.0); Hemoglobin 12.4 g/dL (12.0-15.0); Immature Granulocyte Percent A 0.5 % (0-0.5); Lymphocytes Absolute Auto 2.39 K/mm3 (0.9-3.2); Mean Corpuscular HGB Conc 33.6 g/dl (32-36); Mean Corpuscular Hemoglobin 29.0 pg (26-34); Mean Corpuscular Volume 86.4 fl (80-100); Nucleated Red Blood Cells Absolute Auto 0.000 K/mm3 (0.0-0.012); Nucleated Red Blood Cells Perc 0.0 % (0.0-0.2); Platelet Count Result 158 k/mm3 (150-375); Red Blood Count 4.27 M/mm3 (4.2-5.4); White Blood Count 14.8 K/mm3 (4.5-10.0)
--- NOTE | 2025-10-10 17:15 | LDADM ---
This patient, Anand Rasheed, was admitted to Labor/Delivery/Recovery 105 on 10/10/25 at 16:33. Plans for labor, pain management and were discussed with patient. Patient/family oriented to hospital policies and general routines including ID bracelet, bed and alarms, visiting hours, pain management, procedures, bathroom and other care routines, personal items, smoking policy, room service/diet and guest tray routines, security routines, and visiting hours. Patient/Family are encouraged to report perceived risks to care and to ask questions if they do not understand what they are told or what they should do. See OBIX for further documentation.
[2025-10-10] MEDS: LACTATED RINGERS 1,000 ML 125 ML IV CONT ×2 (17:49→18:53)
[2025-10-10 17:52] LABS: Syphilis IgG/IgM Antibody Non-Reactive (Nonreactive)
--- NOTE | 2025-10-10 18:59 | WPDANESEPP ---
Anes - Eval Pre Procedure Procedure: Labor Epidural Date/Time: 10/10/25 18:59 Surgeon: Ebonie Preop Diagnosis: Labor Pain Pre Op Diagnosis: Labor Patient Data Age: 20 Gender: F Height: 1.6 m Weight: 93.5 kg Last Vital Signs Pulse 75 10/10/25 18:45 BP 121/71 10/10/25 18:45 Pulse Ox 99 10/10/25 18:55 O2 Del Method Room Air 10/10/25 17:13 Allergies Allergy/AdvReac Type Severity Reaction Status Date / Time tramadol Allergy Mild Nausea Verified 10/10/25 17:15 gluten Allergy Vomiting Verified 10/10/25 17:15 Home Medications ?Medication ?Instructions ?Recorded ?Confirmed ?Type albuterol sulfate 90 mcg/actuation 1 inh inhalation QID PRN shortness 07/04/22 09/27/25 Rx aerosol inhaler of breath or wheezing #8.5 grams ondansetron 4 mg disintegrating 4 mg PO Q8H 04/10/25 09/27/25 History tablet vits no.126-ferrous fum 1 tablet PO DAILY #90 tabs 06/12/25 09/27/25 Rx 28 mg iron-folic acid 800 mcg tablet (Classic ) famotidine 20 mg tablet 20 mg PO DAILY #30 tabs 08/14/25 09/27/25 Rx omeprazole 20 mg capsule,delayed 20 mg PO DAILY #90 caps 09/11/25 09/27/25 Rx release Laboratory Tests 10/10/25 17:05 WBC 14.8 H K/mm3 (4.5-10.0) RBC 4.27 M/mm3 (4.2-5.4) Hgb 12.4 g/dL (12.0-15.0) Hct 36.9 L % (37.0-47.0) MCV 86.4 fl (80-100) MCH 29.0 pg (26-34) MCHC 33.6 g/dl (32-36) RDW 13.8 % (11.5-14.5) Plt Count 158 k/mm3 (150-375) MPV 12.2 H fl (7.4-10.4) Immature Gran % (Auto) 0.5 % (0-0.5) Neut % (Auto) 78.4 H % (45.5-73.1) Lymph % (Auto) 16.2 L % (18.3-44.2) [place] % (Auto) 4.7 % (2.6-8.5) Eos % (Auto) 0.1 % (0-4.4) Baso % (Auto) 0.1 L % (0.2-1.2) Lymph # (Auto) 2.39 K/mm3 (0.9-3.2) [place] # (Auto) 0.7 H K/mm3 (0.1-0.6) Eos # (Auto) 0.0 K/mm3 (0-0.3) Baso # (Auto) 0.0 K/mm3 (0.0-0.1) Abs Immat Gran (auto) 0.08 H K/mm3 (0.00-0.031) Absolute Neuts (auto) 11.6 H K/mm3 (1.3-6.7) Absolute Nucleated RBC 0.000 K/mm3 (0.0-0.012) Nucleated RBC % 0.0 % (0.0-0.2) Syphilis IgG/IgM Ab Non-reactive (Nonreactive) Blood Type AB Positive Antibody Screen Negative Patient hx anesthesia problems: none Family hx anesthesia problems: none Results Review: All pre-operative results and documents have been reviewed as part of the pre-operative evaluation. [facility] Past Medical History Medical History Rheumatoid arthritis Normal endoscopy Celiac disease GERD (gastroesophageal reflux disease) Surgical History Surgical History History of appendectomy History of endoscopy Family History Family History Mother Hypertension Father Liver cancer Grandparent Cerebrovascular accident Heart disease Diabetes mellitus Hypertension Social History Social History Smoking status: Former smoker Tobacco type: cigarettes and e-cigarettes/vaping Alcohol intake: never Substance use: former Substance use type: does not use Other substance usage details: Cocaine prior to pregancy Last use: Last summer before Lack of Transportation: No Lack of Food: Sometimes True Current Housing: I Do Not Have Housing Concerned About Future Housing: No Difficulty Paying Gas/Electric Bills: No Difficulty Paying for Meds: No Currently Unemployed: No Education: Grade School Difficulty w/ Childcare or Family Care: No Living arrangements: with family Occupation/Education: occupation Gender identity (if verbalized by the patient): Female Sexual Orientation (if Verbalized by the Patient): Straight or Heterosexual Spiritual care concerns: No Exam Day of Procedure 10/10/25 18:59 Patient weight: normal Heart: regular rate and rhythm Lungs: normal air movement Airway: Mallampati scale class II Neurological: alert and oriented
[2025-10-10] MEDS: OXYTOCIN 30 UNITS/NS 500 ML 30 UNITS/500 ML BAG IV CONT (21:45)
[2025-10-10] MEDS: ACETAMINOPHEN 500 MG TABLET 1000 MG PO (22:54)
[2025-10-10] MEDS: AMPICILLIN SODIUM 2 GM in SODIUM CHLORIDE 0.9% IV 100 ML 200 ML IVPB (23:59)
[2025-10-11] VITALS (188 sets, daily range): BP systolic 84–134; BP diastolic 52–92; PULSE 47–217; RESP 16–17; TEMP 36.6–36.9; O2SAT 88–100
[2025-10-11] MEDS: CALCIUM CARBONATE (TUMS) 500 MG (200 MG ELEMENTAL) PO (01:46)
[2025-10-11] MEDS: LACTATED RINGERS 1,000 ML 125 ML IV CONT (01:47)
[2025-10-11] MEDS: LORATADINE 10 MG TABLET PO (02:08)
[2025-10-11] MEDS: ONDANSETRON INJ 4 MG/2 ML VIAL IV PUSH (04:03)
[2025-10-11] MEDS: AMPICILLIN SODIUM 1 GM in SODIUM CHLORIDE 0.9% IV 50 ML 100 ML IVPB ×2 (04:12→08:08)
--- NOTE | 2025-10-11 06:58 | P.HP_ITS ---
H&P: HPI History of Present Illness Date/Time: 10/11/25 06:58 Chief Complaint: Intrauterine at term Narrative: 20 yo G1 who presents at 39w1d in labor. She also had spontaneous rupture of membranes. complicated by THC use, arthritis, celiacs disease, and CF carrier status. Review of Systems Cardiovascular: Cardiovascular: Denies chest pain, Denies leg edema, Denies palpitations, Denies dyspnea and Denies dyspnea on exertion Respiratory: Respiratory: Denies cough, Denies dyspnea and Denies dyspnea on exertion Gastrointestinal: Gastrointestinal: Denies abdominal pain, Denies constipation, Denies diarrhea, Denies nausea and Denies vomiting Genitourinary: Genitourinary: Denies hematuria, Denies urinary frequency, Denies dysuria, Denies pelvic pain, Denies urinary incontinence and Denies vaginal discharge Neurologic: Reports system reviewed and no additional complaints, except as documented Psychiatric: Psychiatric: Reports no additional psychiatric complaints Endocrine: Endocrine: Denies palpitations PMFSH Past Medical History Medical History Rheumatoid arthritis Normal endoscopy Celiac disease GERD (gastroesophageal reflux disease) Surgical History Surgical History History of appendectomy History of endoscopy Family History Family History Mother Hypertension Father Liver cancer Grandparent Cerebrovascular accident Heart disease Diabetes mellitus Hypertension Social History Social History Smoking status: Former smoker Tobacco type: cigarettes and e-cigarettes/vaping Alcohol intake: never Substance use: former Substance use type: does not use Other substance usage details: Cocaine prior to pregancy Last use: Last summer before Lack of Transportation: No Lack of Food: Sometimes True Current Housing: I Do Not Have Housing Concerned About Future Housing: No Difficulty Paying Gas/Electric Bills: No Difficulty Paying for Meds: No Currently Unemployed: No Education: Grade School Difficulty w/ Childcare or Family Care: No Living arrangements: with family Occupation/Education: occupation Gender identity (if verbalized by the patient): Female Sexual Orientation (if Verbalized by the Patient): Straight or Heterosexual Spiritual care concerns: No Meds Home Medications and Allergies Home Medications ?Medication ?Instructions ?Recorded ?Confirmed ?Type albuterol sulfate 90 mcg/actuation 1 inh inhalation QI D PRN shortness 07/04/22 09/27/25 Rx aerosol inhaler of breath or wheezing #8.5 g marty ondansetron 4 mg disintegrating 4 mg PO Q8H 04/10/25 1 11/28/24 History tablet vits no.126-ferrous fum 1 tablet PO DAILY #90 tabs 06/12/25 09/27/25 Rx 28 mg iron-folic acid 800 mcg tablet (Classic ) famotidine 20 mg tablet 20 mg PO DAILY #30 tabs 07/1809/27/25 Rx omeprazole 20 mg capsule,delayed 20 mg PO DAILY #90 ca ps 09/11/25 09/27/25 Rx release Allergies Allergy/AdvReac Type Severity Reaction Status Date / Time tramadol Allergy Mild Nausea Verified 10/10/25 17:15 gluten Allergy Vomiting Verified 10/10/25 17:15 Vital Signs Vital Signs - 24 hr 10/10/25 16:46 10/10/25 16:51 10/10/25 16:56 Temperature Pulse Rate Blood Pressure Pulse Oximetry 98 98 99 Oxygen Delivery 10/10/25 17:01 10/10/25 17:06 10/10/25 17:11 Temperature Pulse Rate Blood Pressure Pulse Oximetry 98 98 98 Oxygen Delivery 10/10/25 17:12 10/10/25 17:13 10/10/25 17:15 Temperature Pulse Rate 84 90 Blood Pressure 126/80 116/75 Pulse Oximetry Oxygen Delivery Room Air 10/10/25 17:16 10/10/25 17:21 10/10/25 17:26 Temperature Pulse Rate Blood Pressure Pulse Oximetry 99 98 98 Oxygen Delivery 10/10/25 17:30 10/10/25 17:31 10/10/25 17:36 Temperature Pulse Rate 78 Blood Pressure 118/72 Pulse Oximetry 98 99 Oxygen Delivery 10/10/25 17:41 10/10/25 17:45 10/10/25 17:46 Temperature Pulse Rate 82 Blood Pressure 132/81 Pulse Oximetry 98 100 Oxygen Delivery 10/10/25 17:51 10/10/25 17:56 10/10/25 18:30 Temperature 98.2 F Pulse Rate Blood Pressure Pulse Oximetry 99 99 Oxygen Delivery 10/10/25 18:35 10/10/25 18:40 10/10/25 18:45 Temperature Pulse Rate 75 Blood Pressure 121/71 Pulse Oximetry 99 98 98 Oxygen Delivery 10/10/25 18:50 10/10/25 18:55 10/10/25 19:00 Temperature Pulse Rate 86 Blood Pressure 123/78 Pulse Oximetry 99 99 100 Oxygen Delivery 10/10/25 19:04 10/10/25 19:05 10/10/25 19:06 Temperature Pulse Rate 81 98 Blood Pressure 124/75 129/70 Pulse Oximetry 100 Oxygen Delivery 10/10/25 19:07 10/10/25 19:10 10/10/25 19:12 Temperature Pulse Rate 92 62 70 Blood Pressure 130/79 121/69 119/79 Pulse Oximetry 100 Oxygen Delivery 10/10/25 19:15 10/10/25 19:17 10/10/25 19:20 Temperature Pulse Rate 82 65 72 Blood Pressure 117/75 124/63 113/63 Pulse Oximetry 99 99 Oxygen Delivery 10/10/25 19:22 10/10/25 19:25 10/10/25 19:28 Temperature Pulse Rate 80 75 75 Blood Pressure 122/61 111/56 L 121/70 Pulse Oximetry 99 Oxygen Delivery 10/10/25 19:30 10/10/25 19:32 10/10/25 19:35 Temperature Pulse Rate 73 80 83 Blood Pressure 122/81 119/73 126/66 Pulse Oximetry 99 100 Oxygen Delivery 10/10/25 19:37 10/10/25 19:40 10/10/25 19:42 Temperature Pulse Rate 81 85 88 Blood Pressure 127/67 98/65 L 101/57 L Pulse Oximetry 98 Oxygen Delivery 10/10/25 19:45 10/10/25 19:47 10/10/25 19:50 Temperature Pulse Rate 92 87 86 Blood Pressure 97/77 L 123/72 122/76 Pulse Oximetry 100 100 Oxygen Delivery 10/10/25 19:52 10/10/25 19:55 10/10/25 19:58 Temperature Pulse Rate 91 91 91 Blood Pressure 126/82 108/70 120/74 Pulse Oximetry 100 Oxygen Delivery 10/10/25 20:00 10/10/25 20:03 10/10/25 20:05 Temperature 98 F Pulse Rate 89 73 Blood Pressure 119/79 125/68 Pulse Oximetry 100 100 Oxygen Delivery 10/10/25 20:10 10/10/25 20:15 10/10/25 20:20 Temperature Pulse Rate 84 Blood Pressure 124/76 Pulse Oximetry 100 100 100 Oxygen Delivery 10/10/25 20:25 10/10/25 20:30 10/10/25 20:32 Temperature Pulse Rate 72 Blood Pressure 123/61 Pulse Oximetry 100 100 Oxygen Delivery 10/10/25 20:35 10/10/25 20:40 10/10/25 20:45 Temperature Pulse Rate Blood Pressure Pulse Oximetry 100 100 100 Oxygen Delivery 10/10/25 20:47 10/10/25 20:55 10/10/25 21:00 Temperature Pulse Rate 86 89 Blood Pressure 107/70 120/68 Pulse Oximetry 100 100 Oxygen Delivery 10/10/25 21:05 10/10/25 21:10 10/10/25 21:15 Temperature Pulse Rate 67 Blood Pressure 113/76 Pulse Oximetry 100 100 100 Oxygen Delivery 10/10/25 21:20 10/10/25 21:25 10/10/25 21:30 Temperature Pulse Rate 63 Blood Pressure 105/74 Pulse Oximetry 100 100 100 Oxygen Delivery 10/10/25 21:35 10/10/25 21:40 10/10/25 21:45 Temperature Pulse Rate 71 Blood Pressure 127/83 Pulse Oximetry 100 100 100 Oxygen Delivery 10/10/25 21:50 10/10/25 21:55 10/10/25 22:00 Temperature Pulse Rate 72 Blood Pressure 129/89 Pulse Oximetry 100 99 100 Oxygen Delivery 10/10/25 22:04 10/10/25 22:09 10/10/25 22:14 Temperature Pulse Rate Blood Pressure Pulse Oximetry 99 100 100 Oxygen Delivery 10/10/25 22:15 10/10/25 22:19 10/10/25 22:24 Temperature Pulse Rate 62 Blood Pressure 123/74 Pulse Oximetry 100 100 Oxygen Delivery 10/10/25 22:29 10/10/25 22:30 10/10/25 22:34 Temperature Pulse Rate 65 Blood Pressure 132/79 Pulse Oximetry 100 100 Oxygen Delivery 10/10/25 22:39 10/10/25 22:44 10/10/25 22:49 Temperature Pulse Rate Blood Pressure Pulse Oximetry 99 100 100 Oxygen Delivery 10/10/25 22:54 10/10/25 22:59 10/10/25 23:00 Temperature Pulse Rate 61 Blood Pressure 138/76 Pulse Oximetry 97 99 Oxygen Delivery 10/10/25 23:04 10/10/25 23:09 10/10/25 23:14 Temperature Pulse Rate Blood Pressure Pulse Oximetry 100 100 100 Oxygen Delivery 10/10/25 23:15 10/10/25 23:19 10/10/25 23:24 Temperature Pulse Rate 54 L Blood Pressure 134/70 Pulse Oximetry 100 100 Oxygen Delivery 10/10/25 23:29 10/10/25 23:30 10/10/25 23:34 Temperature Pulse Rate 68 Blood Pressure 126/73 Pulse Oximetry 100 100 Oxygen Delivery 10/10/25 23:39 10/10/25 23:44 10/10/25 23:45 Temperature Pulse Rate 58 L Blood Pressure 113/70 Pulse Oximetry 100 100 Oxygen Delivery 10/10/25 23:49 10/10/25 23:54 10/10/25 23:59 Temperature Pulse Rate Blood Pressure Pulse Oximetry 100 100 100 Oxygen Delivery 10/11/25 00:00 10/11/25 00:04 10/11/25 00:09 Temperature 98 F Pulse Rate 58 L Blood Pressure 114/72 Pulse Oximetry 100 99 Oxygen Delivery 10/11/25 00:14 10/11/25 00:15 10/11/25 00:19 Temperature Pulse Rate 53 L Blood Pressure 117/73 Pulse Oximetry 98 100 Oxygen Delivery 10/11/25 00:24 10/11/25 00:29 10/11/25 00:30 Temperature Pulse Rate 63 Blood Pressure 123/85 Pulse Oximetry 100 100 Oxygen Delivery 10/11/25 00:34 10/11/25 00:39 10/11/25 00:44 Temperature Pulse Rate Blood Pressure Pulse Oximetry 100 100 100 Oxygen Delivery 10/11/25 00:45 10/11/25 00:49 10/11/25 00:54 Temperature Pulse Rate 59 L Blood Pressure 117/63 Pulse Oximetry 100 90 Oxygen Delivery 10/11/25 00:59 10/11/25 01:00 10/11/25 01:01 Temperature Pulse Rate 58 L Blood Pressure 118/73 Pulse Oximetry 100 90 Oxygen Delivery 10/11/25 01:06 10/11/25 01:11 10/11/25 01:15 Temperature Pulse Rate 69 Blood Pressure 130/80 Pulse Oximetry 100 100 Oxygen Delivery 10/11/25 01:16 10/11/25 01:21 10/11/25 01:26 Temperature Pulse Rate Blood Pressure Pulse Oximetry 100 99 99 Oxygen Delivery 10/11/25 01:31 10/11/25 01:36 10/11/25 01:41 Temperature Pulse Rate 58 L Blood Pressure 107/62 Pulse Oximetry 98 98 98 Oxygen Delivery 10/11/25 01:45 10/11/25 01:46 10/11/25 01:51 Temperature Pulse Rate 53 L Blood Pressure 110/54 L Pulse Oximetry 99 99 Oxygen Delivery 10/11/25 01:56 10/11/25 02:00 10/11/25 02:01 Temperature Pulse Rate 65 Blood Pressure 128/92 H Pulse Oximetry 99 99 Oxygen Delivery 10/11/25 02:06 10/11/25 02:11 10/11/25 02:15 Temperature Pulse Rate 63 Blood Pressure 132/86 Pulse Oximetry 100 100 Oxygen Delivery 10/11/25 02:16 10/11/25 02:21 10/11/25 02:26 Temperature Pulse Rate Blood Pressure Pulse Oximetry 99 97 97 Oxygen Delivery 10/11/25 02:30 10/11/25 02:31 10/11/25 02:36 Temperature Pulse Rate 61 Blood Pressure 122/80 Pulse Oximetry 97 97 Oxygen Delivery 10/11/25 02:41 10/11/25 02:45 10/11/25 02:46 Temperature Pulse Rate 57 L Blood Pressure 127/76 Pulse Oximetry 98 99 Oxygen Delivery 10/11/25 02:51 10/11/25 02:56 10/11/25 03:00 Temperature Pulse Rate 59 L Blood Pressure 131/79 Pulse Oximetry 98 98 Oxygen Delivery 10/11/25 03:01 10/11/25 03:01 10/11/25 03:06 Temperature Pulse Rate Blood Pressure Pulse Oximetry 98 98 98 Oxygen Delivery 10/11/25 03:11 10/11/25 03:15 10/11/25 03:16 Temperature Pulse Rate 53 L Blood Pressure 113/72 Pulse Oximetry 97 97 Oxygen Delivery 10/11/25 03:21 10/11/25 03:26 10/11/25 03:30 Temperature Pulse Rate 61 Blood Pressure 122/68 Pulse Oximetry 97 97 Oxygen Delivery 10/11/25 03:31 10/11/25 03:36 10/11/25 03:41 Temperature Pulse Rate Blood Pressure Pulse Oximetry 99 98 98 Oxygen Delivery 10/11/25 03:45 10/11/25 03:46 10/11/25 03:51 Temperature Pulse Rate 54 L Blood Pressure 131/66 Pulse Oximetry 98 100 Oxygen Delivery 10/11/25 03:56 10/11/25 04:00 10/11/25 04:01 Temperature 98.5 F Pulse Rate 71 Blood Pressure 131/79 Pulse Oximetry 100 100 Oxygen Delivery 10/11/25 04:06 10/11/25 04:09 10/11/25 04:14 Temperature Pulse Rate Blood Pressure Pulse Oximetry 100 96 99 Oxygen Delivery 10/11/25 04:15 10/11/25 04:18 10/11/25 04:23 Temperature Pulse Rate 54 L Blood Pressure 118/66 Pulse Oximetry 98 98 Oxygen Delivery 10/11/25 04:28 10/11/25 04:30 10/11/25 04:33 Temperature Pulse Rate 63 Blood Pressure 133/66 Pulse Oximetry 99 99 Oxygen Delivery 10/11/25 04:38 10/11/25 04:43 10/11/25 04:45 Temperature Pulse Rate 58 L Blood Pressure 120/79 Pulse Oximetry 100 100 Oxygen Delivery 10/11/25 04:48 10/11/25 04:53 10/11/25 04:58 Temperature Pulse Rate Blood Pressure Pulse Oximetry 100 100 100 Oxygen Delivery 10/11/25 05:00 10/11/25 05:03 10/11/25 05:08 Temperature Pulse Rate 62 Blood Pressure 115/63 Pulse Oximetry 100 100 Oxygen Delivery 10/11/25 05:13 10/11/25 05:15 10/11/25 05:18 Temperature Pulse Rate 56 L Blood Pressure 114/69 Pulse Oximetry 100 99 Oxygen Delivery 10/11/25 05:23 10/11/25 05:28 10/11/25 05:30 Temperature Pulse Rate 98 Blood Pressure 134/80 Pulse Oximetry 99 98 Oxygen Delivery 10/11/25 05:33 10/11/25 05:38 10/11/25 05:43 Temperature Pulse Rate Blood Pressure Pulse Oximetry 95 98 98 Oxygen Delivery 10/11/25 05:45 10/11/25 05:46 10/11/25 05:51 Temperature Pulse Rate 61 Blood Pressure 120/64 Pulse Oximetry 88 L 97 Oxygen Delivery 10/11/25 05:56 10/11/25 06:00 10/11/25 06:01 Temperature Pulse Rate 70 Blood Pressure 132/70 Pulse Oximetry 96 95 Oxygen Delivery 10/11/25 06:06 10/11/25 06:11 10/11/25 06:14 Temperature 97.8 F Pulse Rate Blood Pressure Pulse Oximetry 96 94 Oxygen Delivery 10/11/25 06:15 10/11/25 06:16 10/11/25 06:21 Temperature Pulse Rate 68 Blood Pressure 119/67 Pulse Oximetry 96 96 Oxygen Delivery 10/11/25 06:26 10/11/25 06:30 10/11/25 06:31 Temperature Pulse Rate 51 L Blood Pressure 114/63 Pulse Oximetry 96 96 Oxygen Delivery 10/11/25 06:36 10/11/25 06:41 10/11/25 06:46 Temperature Pulse Rate Blood Pressure Pulse Oximetry 95 95 95 Oxygen Delivery 10/11/25 06:51 10/11/25 06:56 Temperature Pulse Rate Blood Pressure Pulse Oximetry 95 98 Oxygen Delivery Exam Const: General: no acute distress Eyes: EOM: EOMs intact bilaterally Neck: Neck: supple Thyroid: thyroid normal Chest: Breast/axilla inspection: normal inspection of the breasts Breast/axilla palpation: normal palpation of the breasts, normal palpation of the axillae and no axillary lymphadenopathy Resp: Effort & Inspection: normal respiratory effort Auscultation: clear to auscultation bilaterally Cardio: Rate: regular rate Rhythm: regular rhythm GI: Inspection: non-distended and other (Gravid) GI Palp: Yes Soft to palpation, No Tenderness to palpation present (GI) and No Guarding due to palpation present (GI) Auscultation: normal bowel sounds : Speculum Exam - Vagina: No vaginal bleeding OB/external & speculum: external exam normal; No vaginal bleeding Skin: General skin exam: normal color and no rashes or lesions noted Neuro: Cognition (Neuro): normal cognition Speech: normal speech Extrem: General: normal to inspection Psych: Mental Status: mental status grossly normal Affect: normal affect Results Labs Labs: Short CBC 10/10/25 Range/Units 17:05 WBC 14.8 H (4.5-10.0) K/mm3 Hgb 12.4 (12.0-15.0) g/dL Hct 36.9 L (37.0-47.0) % Plt Count 158 (150-375) k/mm3 Assessment and Plan Assessment and plan (1) : Code(s): Z34.90 - Encounter for supervision of normal , unspecified, unspecified trimester Status: Acute Assessment and Plan: 20 yo at 39w in labor + spontaneous rupture of membranes admit to L&D prenatals reviewed Rh+ GBS neg continuous EFM will augment with pitocin epidural PRN
[2025-10-11] MEDS: ACETAMINOPHEN 500 MG TABLET 1000 MG PO (07:10)
--- NOTE | 2025-10-11 07:28 | PC.NURSE ---
Dr. Loomis notified of pt [place] score. aware of score unchanged from office.
--- NOTE | 2025-10-11 10:40 | PM.OBPRVD ---
OB - Vaginal Delivery Note Procedure Delivery date: 10/11/25 Induction method: None Delivery augmentation: Pitocin Delivery monitor: External FHT and Internal Uterine Route of delivery: Episiotomy description: None Laceration Description: Labial (bilateral) Specimen: No Quantitative Blood Loss (ml): 150 Anesthesia type: Epidural Disposition: Floor Complications: No immediate complications Narrative: Patient pushed for a spontaneous vaginal delivery. The fetus was delivered atraumatically and placed on the maternal abdomen. The cord was clamped and cut after 1 minute of life. The cord was double clamped and cut and a segment of cord was collected for cord gases. Cord blood was collected for blood type and Coomb's testing. The placenta delivered spontaneously and was noted to be intact. The perineum was inspected and noted to be intact. There were bilateral superficial labial lacerations that were hemostatic. The fundus was noted to be firm and good hemostasis was noted. The mom and infant were stable in the delivery room. Baby Date of : 10/11/25 Time of : 10:32 Gestational Age by Date: 39 Infant gender: Female Weight (pounds): 8 Weight (ounces): 9 presentation: vertex position: Right Occiput Anterior Placenta delivery description: Spontaneous Cord Vessel Description: 3 Vessels score one minute: 8 score five minutes: 9
[2025-10-11] MEDS: OXYTOCIN 30 UNITS/NS 500 ML 30 UNITS/500 ML BAG 125 UNITS IV CONT (11:05)
[2025-10-11 12:49] LABS: Cannabinoid Screen Urine Positive (Negative)
--- NOTE | 2025-10-11 13:33 | PC.NURSE ---
Patient transferred to post room #284 per wheelchair from labor and delivery. Support person present. Oriented to unit, room, information board, rooming in, admission packet and security measures. Patient verbalizes understanding.
--- NOTE | 2025-10-11 15:34 | PCCCNOTE ---
Met with pt. today initially alone to discuss services. Pt. has been staying with EDUAR Kartik at the [facility] in [place] for about 7 months now. She and Kartik plan to return to [facility] at discharge. 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 Pt. reports that she had a sister give at our hospital a couple of years ago and at that time she received a car seat, pt. is requesting one for her baby as she has not yet obtained one. RN aware of this. Pt. has some supplies at home for baby. Has a hand pumping breast pump at home to use. basket was provided to her. Pt. requested [facility] information and this was given to pt. by CC. EDUAR Verdugo and pt.'s mother entered room at this time and reiterated above. Pt. has support from her family. Pt.'s mother will be available to assist them at discharge. Pt. and Kartik are currently residing at [facility] at this time because they were living at home with maternal grandmother but other people in that home (pt.'s sister and sister's boyfriend) have not been getting along with pt. and Kartik so decision was made to stay at the [facility]. Pt. has information for WIC services. Pt. is working on transportation home at this time. She has information for her insurance ([employer]) to call for a [employer] at discharge if needed. RN also aware that a cab voucher could be available if pt. is not able to get her family to transport her home at discharge due to their work schedules tomorrow and Tuesday. Pt. states she has recreationally used marijuana for some time, encouraged to discuss marijuana use and breast feeding with her Biostatistics Director Dr. Sarmiento. Per RN they will do a cord screening for baby but no plans to do a urine test. Will follow for cord screening testing. Pt. denies any other needs.
--- NOTE | 2025-10-11 17:00 | PC.NURSE ---
Introductions were made, then consulted with patient to assess needs related to . Discussed with mother her?plans to feed?her and the?experience so far. Per mother infant latched well to the right breast but would not feed on the left, advised mother to try a different position with the next feeding. Mother requested an insurance breast pump to take home with her, a Medela Pump and Style was provided, instructions given on cleaning, care, usage, that there should be no pain, pumping schedule for milk production, collection, and storage of human milk. Patient was assessed for correct placement and flange size, both nipples were 19mm and she should use the size 24 flange. ?Mother voiced understanding of the education shared along with mom/baby guide and the pump measurement, flange fit handout for additional resource information. Resources provided for inpatient and outpatient services with the feeding sheet, mom/baby guide and name written on the communication board. Mother voiced understanding of information and will call if there is a request for assistance. Reported to the Primary RN.
[2025-10-11] MEDS: ACETAMINOPHEN 325 MG TABLET 650 MG PO (17:30)
[2025-10-11] MEDS: IBUPROFEN 600 MG TABLET PO (17:30)
[2025-10-11] MEDS: oxyCODONE HCL (*CRX) 5 MG TAB IR PO (20:23)
[2025-10-12] MEDS: IBUPROFEN 600 MG TABLET PO ×2 (00:18→07:09)
[2025-10-12] MEDS: ACETAMINOPHEN 325 MG TABLET 650 MG PO ×2 (00:18→07:09)
[2025-10-12 04:56] LABS: Hematocrit 29.9 % (37.0-47.0); Hemoglobin 9.7 g/dL (12.0-15.0)
[2025-10-12] MEDS: DOCUSATE SODIUM 100 MG CAPSULE PO (07:08)
[2025-10-12] MEDS: MULTIVIT/MIN/PREN/FOL AC/IRON TABLET 1 TAB PO (07:08)
[2025-10-12 07:54] VITALS: BP 115/79; PULSE 60; RESP 18; TEMP 36.5; O2SAT 98
--- NOTE | 2025-10-12 08:00 | P.PNOB_ITS ---
OB - PN: Subj Subjective Date/time seen: 10/12/25 08:00 Patient comments: no complaints, pain well controlled and tolerating diet [place] feeding status: exclusively breast feeding Narrative: patient doing well this AM. No complaints. Pain is well controlled. She reports minimal bleeding. She is ambulating and voiding without difficulty. She is tolerating PO. She denies N/V, fever, chills. OB - PN: Obj Data Labs 10/12/25 04:46 Labs: Laboratory Results - last 24 hr 10/11/25 10/12/25 10:53 04:46 Hgb 9.7 L Hct 29.9 L Urine Opiates Screen Negative Urine Methadone Screen Negative Ur Barbiturates Screen Negative Ur Phencyclidine Scrn Negative Ur Amphetamine Screen Negative U Benzodiazepines Scrn Negative Urine Cocaine Screen Negative U Cannabinoids Screen Positive A OB - PN A/P Plan day: 1 Plan: routine care Comments: patient doing well H/H 9.7/29, asymptomatic continue routine care Time Spent With Patient Time: Total time spent is greater than 50% in coordination of care (as documented) at patient's floor/unit and/or counseling patient: Time with patient: less than 15 minutes Review of Systems 2 Review of Systems: All systems reviewed & are unremarkable except as noted in HPI and below Exam 2 Const: General: comfortable and no acute distress Resp: Effort & Inspection: normal respiratory effort Cardio: Rate: regular rate GI: GI Palp: Yes Soft to palpation and No Tenderness to palpation present (GI) Auscultation: normal bowel sounds Other: fundus firm and below umbilicus. Psych: Affect: normal affect
--- NOTE | 2025-10-12 09:30 | P.DS_ITS ---
DS: Admitting Diagnosis Discharge Date 10/12/25 Admitting Diagnosis intrauterine at term DS: Discharge Diagnosis Discharge Diagnosis (1) Normal vaginal delivery: Code(s): O80 - Encounter for full-term uncomplicated delivery Status: Acute OB - DS: Summary OB Procedures : None OB Procedures Intrapartum: Spontaneous Vag Delivery OB Procedures: : None Peripartum Data Laceration Description: Labial (bilateral) Episiotomy description: None Status at Discharge Functional status at discharge: independent ambulation Overall status at discharge: patient is back to baseline Time Spent with Patient Time attestation: Total time spent providing and/or coordinating discharge services: Time spent: Less than 30 minutes Exam Const: General: comfortable and no acute distress Resp: Effort & Inspection: normal respiratory effort Auscultation: clear to auscultation bilaterally Cardio: Rate: regular rate GI: GI Palp: Yes Soft to palpation Auscultation: normal bowel sounds Other: Fundus firm below umbilicus Psych: Appearance: grossly normal Mental Status: mental status grossly normal Affect: normal affect DS: Data Data Completed and Pending Labs on day of discharge: Labs from last 24 hours 10/12/25 10/11/25 04:46 10:53 Hgb 9.7 L Hct 29.9 L Urine Opiates Screen Negative Urine Methadone Screen Negative Ur Barbiturates Screen Negative Ur Phencyclidine Scrn Negative Ur Amphetamine Screen Negative U Benzodiazepines Scrn Negative Urine Cocaine Screen Negative U Cannabinoids Screen Positive A Discharge Plan Discharge Discharging Clinician: Stuart Loomis Patient Disposition: Home Activity: as tolerated and pelvic rest Diet: regular Discharge Instructions: Education: Mom and Baby Guide Given to: Mother Follow-Up: Call your delivering provider's office for an appointment to be seen in: 4 Weeks Mom and baby should come to the [facility] for the follow-up appointment. Appointment Date/Time: October 14, 2025 at 10:00 am What to expect at your follow-up visit: Blood Pressure Check Physical Assessment Call [phone] if you are unable to keep your appointment time. BREAST CARE: * Wear a snug supportive bra. * For engorgement discomfort: Breast Feeding: * Apply warm moist washcloths * Express milk as needed to relieve engorgement * Wear loose clothing Bottle Feeding: * May apply ice packs * For sore nipples: * Identify correct latch-on * Apply warm moist washcloths before and after nursing * Air dry nipples after nursing * May apply Lansinoh cream to nipples PERINEAL CARE: * Until bleeding stops, use your neel bottle after urinating * Change your pad frequently throughout the day * You may take sitz baths several times a day (fill your bathtub with warm water and soak for 20 minutes.) Do NOT bathe in the water * No tub baths until seen by your physician - You may shower ACTIVITY: * Rest as much as possible. * Do not exercise or lift anything heavier than your baby (such as laundry or other children.) * Avoid stairs or driving as much as possible. * Do not put anything into the vagina. No douching, tampons, or sexual activity until seen by physician. NOTIFY PHYSICIAN IF YOU HAVE ANY QUESTIONS OR IF ANY OF THE FOLLOWING SYMPTOMS OCCUR: * If your vaginal bleeding becomes foul smelling. * If your vaginal bleeding becomes more heavy than a period or if your bleeding changes from pink to bright red. However, you may pass an occasional walnut- sized clot once or twice for the first week . * If you experience a sharp, shooting pain in your calves. * If you discover a hard, reddened area on your breast or if you experience flu- like symptoms. DIET: * Eat regular, well-balanced meals. * Drink plenty of fluids daily. If , drink to thirst. Patient Language: Syriac Stand Alone Forms: General Discharge Information Follow-up/Referrals: Stuart Loomis MD [Physician, [employer]] - 4 Weeks Discharge Medications: New ferrous sulfate 325 mg (65 mg iron) tablet,delayed release (DR/EC) 325 mg PO DAILY Qty: 30 0RF acetaminophen 500 mg tablet 500 mg PO Q6H PRN (Reason: pain) Qty: 30 0RF ibuprofen 600 mg tablet 600 mg PO Q6H PRN (Reason: pain) Qty: 30 0RF Continued albuterol sulfate 90 mcg/actuation HFA aerosol inhaler 1 inh inhalation QID PRN (Reason: shortness of breath or wheezing) Qty: 8.5 0RF Classic 28 mg iron- 800 mcg tablet 1 tablet PO DAILY Qty: 90 1RF ondansetron 4 mg tablet,disintegrating 4 mg PO Q8H famotidine 20 mg tablet 20 mg PO DAILY Qty: 30 0RF omeprazole 20 mg capsule,delayed release(DR/EC) 20 mg PO DAILY Qty: 90 0RF Date of admission: 10/10/25 16:33 Primary Care Provider: MikeSadie Admitting Provider: Stuart Loomis Attending physician on admission: Stuart Loomis Condition: Stable
[2025-10-12] MEDS: INFLUENZA VACCINE 45 MCG/0.5 ML SYRINGE IM (11:11)
[2025-10-12] MEDS: TETANUS,DIPHTHERIA,AC PERTUSSIS ADULT (0.5 ML) BOOSTRIX IM (11:12)
--- NOTE | 2025-10-12 11:24 | PC.NURSE ---
Patient viewed the discharge video Mother & Baby Care, The First Two Weeks. Patient was given the opportunity and encouraged to ask questions. Patient verbalized understanding of information shared and has been given the mother/baby guide for home reference.
[2025-10-14 10:18] VITALS: BP 128/60; PULSE 98; RESP 18; TEMP 36.6; O2SAT 100
--- NOTE | 2025-10-14 13:51 | PC.NURSE ---
1050- Patient taken to ED via wheelchair, family and with patient.
== END 2025-10-12 13:10 | disposition home or self-care (01) | DRG 560 ==
LOC: ANHLDR 17:19 → ANHOB2 10-11 13:39
PROVIDERS: Admitting Provider Student in an Organized Health Care Education/Training Program; PCP Internal Medicine Gastroenterology; Visit Provider Student in an Organized Health Care Education/Training Program
DX: O99.62 Diseases of the digestive system complicating childbirth (principal); Z37.0 Single live birth; Z3A.39 39 weeks gestation of pregnancy; K90.0 Celiac disease; O99.324 Drug use complicating childbirth; F12.90 Cannabis use, unspecified, uncomplicated; O99.892 Other specified diseases and conditions complicating childbirth; M06.9 Rheumatoid arthritis, unspecified; O42.02 Full-term premature rupture of membranes, onset of labor within 24 hours of rupture; O70.0 First degree perineal laceration during delivery; Z14.1 Cystic fibrosis carrier; Z23 Encounter for immunization
CPT/HCPCS: 36415; 80307; 85014; 85018; 85025; 86593; 86850; 86900; 86901; 90471; 90656; 90715; A9270; G0008; J0290; J1200; J2405; J2590; J2795; J7120

== ENCOUNTER 2025-10-14 10:48 | Emergency (ER) | payer OTHER, SELFPAY ==
[2025-10-14 10:51] VITALS: BP 118/75; PULSE 69; RESP 20; TEMP 36.6; O2SAT 100
--- NOTE | 2025-10-14 11:11 | ECG_ITS ---
Test Date: 2025-10-14 12:18:22 Measurements Intervals [place] Rate: 60 P: 51 HI: 141 QRS: 49 QRSD: 87 T: 19 QT: 388 QTc: 388 Interpretive Statements SINUS RHYTHM WITH SINUS ARRHYTHMIA POSSIBLE RIGHT VENTRICULAR CONDUCTION DELAY BASELINE ARTIFACT- I, II, AVR, AVL BORDERLINE ECG Compared to ECG 08/23/2025 13:58:47 NO SIGNIFICANT CHANGE Electronically Signed On 10-14-2025 22:20:34 [employer] by Wale Palomino D.O.
--- OUTSIDE RECORDS SUMMARY | 2025-10-14 11:24 | XMS_ITS | Data Portability ---
Author Organization [facility] Address [address] [facility] [place] [address] Care Team Providers Care Sheet Sorter Name Role Phone KHANG CASTRO Bioinformatics Assistant Assessment Encounter Date Assessment Date Assessment LastModified by Organization Details LastModified Time 03/19/2022 03/19/2022 has CUSTODIAL ENGINEER appt (Carol soon for contraception Not available [...] DO Not Attach Compendium, Do Not Delete/merge, [id number] 3 12:20:01 streptoco ccus group A, culture, throat 2022 023 [facility], [address] [facility] [address], [address], [place], [address], 3 06:53:56 chlamydia trachomat is + neisseria gonorrhoe ae + trichomon as vaginalis DNA panel, BRANDON+probe , unspecifi ed specimen 2021 [facility], [address] [facility], [address], [place], [address], 05:08:38 test, urine 2021 [email or web address] 1 In-Office Order, Internal Use Only DO Not Attach Compendium DO Not Attach Compendium, Do Not Delete/merge, [id number] 15:58:00 Referral pediatric gastroent erologist referral - h/o celiac disease, not seen since 2017? 2021 [facility], [address] [place] [address], [address], 12:20:55 pediatric rheumatol ogist referral - last seen 01/22/192021 [facility] (Rheumatology ), [address] [place], [address], 12:20:25 Procedures None recorded. Surgeries None recorded. Imaging None recorded. Medication Orders famotidin e 20 mg tablet [address] [facility] [place], [address], 3 14:36:47 Xulane 150 mcg-35 mcg/24 hr transderm al patch [address] [facility], [address] [place], [address], 3 14:37:31 Lo Loestrin Fe 1 mg-10 mcg (24)/10 mcg (2) tablet [address] [facility] [address] [place], [address], 14:37:45 Focalin XR 10 mg capsule,e xtended release 2021 022 [facility] [place], [address], 14:59:30 Patient TargetsNo targets recorded. Patient Instructions Encounter Date Encounter Id Patient Instructions Last Modified By Organization Details Last Modified Time 03/19/2022 [id number] patient health questionnaire modified for adolescents* Not available 03/19/2022 14:54:45 05/26/2022 [id number] painful menstrua l cramps in teens: care instructions Not available 05/26/2022 15:18:04 08/29/2023 [id number] celiac disease i n children: care instructions [email or web address] Not available 08/29/2023 14:54:56 Reason for Referral Pediatric Salesperson Handbags Referral for Celiac disease h/o celiac disease, not seen since 2016? Referring Physician: [facility], Encounter Date: 03/19/2022 Pediatric Taxation Inspector Ref erral for Arthritis last seen 01/22/19 Referring Physician: [facility], Encounter Date: 03/19/2022 Results Created Date Observation Date Name Description Value Unit Range Abnormal Flag Note LastModifiedBy Organization Detail LastModifiedTime 01/07/2001/10/2023 CBC w/ auto diff complete metabolic panel normal Not Available Keyshawn[address], [place], [address], 01/06/2023 10:22:44 01/07/20 23 01/10/2023 CBC w/ auto diff CBC normal Not Available [address], [place], [address], 01/06/2023 10:22:44 05/26/20 22 05/28/2022 CT, NG, TRICH VAG BY BRANDON chlamydia by BRANDON NEGATI VE negati ve Not Available [facility] ([facility]) [address] [facility], [place], [address], 05/28/2022 05:08:38 05/26/20 22 05/28/2022 CT, NG, TRICH VAG BY BRANDON gonococcus by BRANDON NEGATI VE negati ve Not Available [facility] ([facility]) [address] [place], [address], 05/28/2022 05:08:38 05/26/20 22 05/28/2022 CT, NG, TRICH VAG BY BRANDON trich vag by BRANDON NEGATI VE negati ve Not Available [facility] ([facility]) [address] [facility], [place], [address], 05/28/2022 05:08:38 05/26/20 22 05/26/2022 pregn leonardo test, urine HCG negati ve Not Available In-Office Order Internal Use Only DO Not Attach Compendium DO Not Attach Compendium, Do Not Delete/merge, [id number] 05/26/2022 15:41:05 12/09/19 23 12/12/2022 BETA STREP GP A CULTU RE beta strep gp A culture Negati ve Refer ence Range : Negat reagan Not Available [facility] ([facility]) [address] [facility], [place], [address], 12/12/2022 06:53:56 12/09/1912/09/2022 rapid strep group A, throa t Strep negati ve Not Available In-Office Order Internal Use Only DO Not Attach Compendium DO Not Attach Compendium, Do Not Delete/merge, [id number] 12/09/2022 11:58:07 01/07/2001/06/2023 CMP, serum or plasm a complete metabolic panel normal Not Available Keyshawn [address], [place], [address], 01/06/2023 07:52:37 01/07/20 23 01/06/2023 CMP, serum or plasm a CBC normal Not Available [address], [place], [address], 01/06/2023 07:52:37 04/01/20 04/01/2022 CT, abdom en + pelvi s, w/o contr ast No observ ation record ed. [address] [address], [place], [address], 04/01/2022 12:13:06 06/25/20 22 06/25/2022 XR, chest , 2 view No observ ation record ed. [email or web address] [address] [facility], [place], [address], 08/26/2022 15:58:31 10/11/20 22 10/11/2022 XR, chest , 2 view No observ ation record ed. [address] [address], [place], [address], 10/20/2022 09:06:45 10/11/20 22 10/11/2022 CT, abdom en + pelvi s, w/ contr ast No observ ation record ed. [address] [address], [place], [address], 10/20/2022 09:06:46 10/13/20 22 10/11/2022 elect subhash gary am No observ ation record ed. [address] (Resp Services) [address] [place] [address], [place], [address], 10/20/2022 09:06:46 06/11/20 23 06/11/2023 XR, knee No observ ation record ed. [address] [facility], [place], [address], 06/15/2023 02:15:18 06/29/20 23 06/29/2023 CT, head, w/o contr ast No observ ation record ed. [address], [place], [address], 06/29/2023 12:26:47 06/29/20 23 06/29/2023 CT, cervi jose e spine , w/o contr ast No observ ation record ed. [address], [place], [address], 06/29/2023 12:26:48 06/29/2006/29/2023 XR, hip + pelvi s, bilat eral, 3 or 4 view No observ ation record ed. [address], [place], [address], 06/29/2023 12:26:48 06/29/20 23 06/29/2023 XR, chest , 1 view No observ ation record ed. [address] [facility], [place], [address], 06/29/2023 12:26:49 07/24/2007/24/2023 CT, abdom en + pelvi s, w/ contr ast No observ ation record ed. [address] [facility], [place], [address], 07/25/2023 05:30:00 04/07/20 25 04/07/2025 US, obste tric, 1st trime ster No observ ation record ed. [address] [facility], [place], [address], 04/08/2025 15:11:44 06/26/20 25 06/26/2025 US, obste tric No observ ation record ed. [address] [facility], [place], [address], 07/05/2025 09:44:43 08/23/2008/23/2025 CT, brain , w/o contr ast No observ ation record ed. [address] [facility], [place], [address], 09/10/2025 21:18:06 08/23/20 25 08/23/2025 XR, chest No observ ation record ed. [address] [facility], [place], [address], 09/10/2025 21:18:06 Result Notes None recorded. Problems Name Problem SNOMED Code Status Onset Date Resolution Date Notes Provider Name and Address Organization Details Recorded Time Obstructive sleep apnea syndrome 08622597 Active 2013 Ava Faust MD Attn: Minnie carmichael,[address] [facility], [place], [address], [place] [facility] 2 19:39:29 Arthritis 7489071 Active 2020 Ava Faust MD Attn: Minnie g,[address] [facility], [place], [address], [place] [facility] 2 19:30:09 Anxiety 00646905 Active 2020 Ava Faust MD Attn: Minnie carmichael,[address] [facility], [place], [address], [place] [facility] 2 19:30:06 Depressive disorder 23844486 Active 2020 Ava Faust MD Attn: Minnie carmichael,[address] [facility], [place], [address], [place] [facility] 2 19:29:57 Nail biting 06553606 Active 2021 Ava Faust MD Attn: Minnie carmichael,[address] [facility], [place], [address], [place] [facility] 2 19:30:12 Attention deficit hyperactivity disorder 020215504 Active 2021 Ava Faust MD Attn: Minnie carmichael,[address] [facility], [place], [address], [place] [facility] 2 19:30:06 Childhood obesity 970908459 Active 2021 Ava Faust MD Attn: Minnie carmichael,[address] [facility], [place], [address], [place] [facility] 2 19:56:54 Celiac disease 996713098 Active 2021 Ava Faust MD Attn: Minnie carmichael,[address] [facility], [place], [address], [place] [facility] 2 19:56:48 Adult health examination Active 2022 Sadie Mckeon MD Attn: Minnie carmichael,[address] [facility], [place], [address], [place] [facility] 3 14:51:52 History of appendectomy 237878601 Active 2022 Sadie Mckeon MD Attn: Minnie carmichael,[address] [facility], [place], [address], [place] [facility] 3 14:52:13 Rheumatoid arthritis 46212762 Active 2022 Sadie Mckeon MD Attn: Minnie carmichael,[address] [facility], [place], [address], [facility] - [facility] 3 14:52:56 Problem Notes None recorded. Procedures Surgical History Date Name Laterality Status Provider Name and Address Organization Details Recorded Time endoscopy completed Jenneo Dalal [place] - [place] 019 16:09:16 Imaging Results None recorded. Procedure Notes None recorded. Medical Equipment None Reported. Allergies Allergen ID Allergen Name Allergen Category Reaction Reaction Severity Criticality Documentation Date Start Date Code Code System Note Provider Name and Address Organization Details Recorded Time 029415 tramadol medicatio n nausea Not available Not available 10/22/2020 19848 RxNorm Ava Faust MD Attn: Minnie carmichael,[address] [facility], [place], [address], [place] - [facility] 2 15:03:07 572012 wheat gluten extract food abdominal pain Not available high 05/26/2022 98388 81 RxNorm Rose Phillips MA [facility], [place] - [facility] 2 14:59:00 Medications Name Sig [...] Address Organization Details Last Updated DateTime 12/09/2022 91585.95 g 98.6 [degF] Rita Valdovinos [place] [facility] 12/09/2022 11:50:39 Date Recorded Body height Body mass index (BMI) Body mass index (BMI) [Percentile] Per age and sex Body weight Oxygen saturation Heart rate Body temperature Systolic And Diastolic Provider Name and Address Organization Details Last Updated DateTime 162.56 cm 31.3 kg/m2 96 % 10363.6 1 g 97 % 61 /min 98.6 [degF] 100/62 mm[Hg] Rita Valdovinos MA [facility] 2 14:44:48 Date Recorded Body weight Body mass index (BMI) Body mass index (BMI) [Percentile] Per age and sex Body height Systolic And Diastolic Provider Name and Address Organization Details Last Updated DateTime 05/26/2022 60663.7 g 29.2 kg/m2 94 % 162.56 cm 112/66 mm[Hg] Rose Phillips MA [facility] 2 14:56:59 Date Recorded Body height Body mass index (BMI) Body mass index (BMI) [Percentile] Per age and sex Body weight Systolic And Diastolic Provider Name and Address Organization Details Last Updated DateTime 08/26/2022 162.56 cm 29.9 kg/m2 95 % 20961.0 7 g 106/60 mm[Hg] Judith Reyna MA [facility] 2 15:42:50 Date Recorded Body height Body mass index (BMI) Body mass index (BMI) [Percentile] Per age and sex Body weight Body temperature Oxygen saturation Heart rate Systolic And Diastolic Provider Name and Address Organization Details Last Updated DateTime 3 162.56 cm 29.2 kg/m2 93 % 89584.7 g 98.1 [degF] 98 % 100 /min 110/76 mm[Hg] Uzma Munguia MA [facility] 3 14:12:36 Social History Question Answer Notes LastModified by Organizat ion Details LastModified Time Tobacco Smoking Status Never Smoker Ivory Edouard MA [facility], [facility] 04/09/2020 14:45:22 What Is Your Level Of [...] available 10/22/2020 12:51:55 Mother Endometritis sdevriesma Not ogla ilable 10/22/2020 12:52:20 Medical History Condition Response Coronary Artery Disease N Other N Atrial Fibrillation N High Blood Pressure N Thyroid Problems N Kidney or Bladder Problems N Depression Y COPD N Blood Clots N GI Problems Y Skin Problems N Eating Disorder N Anemia N Heart Attack ([place]) N Diabetes N Anxiety Disorder Y Muscle, Joint, or Bone Problems Y Seizures/Epilepsy N Acid Reflux (GERD) Y Cancer N Stroke N Allergies Y Asthma N ADHD Y Substance Abuse N High Cholesterol [...] completed Ava Faust MD Attn: Accounting,[address] [facility], [place], [place], [address] [place] [address], [place] [facility] 12/09/2022 14:12:39 varicella 6 completed Ivory Edouard [place] null, [place] [facility] 04/09/2020 15:06:33 varicella 0 completed Ivory Edouard [place], [place] [facility] 04/09/2020 15:06:36 HPV9 7 completed Ava Faust MD Attn: Accounting,[address] [facility], [place], [place], [address] [place] [address], [place] [facility] 12/09/2022 14:12:39 HPV9 6 completed Ava Faust MD Attn: Accounting,[address] [facility], [place], [address] [place] [address], [place] [facility] 12/09/2022 14:12:39 pneumococcal conjugate PCV 7 5 completed Ava Faust MD Attn: Accounting,[address] [facility], [place], [address] [place] [address], [place] [facility] 12/09/2022 14:12:39 pneumococcal conjugate PCV 7 6 completed Ava Faust MD Attn: Accounting,[address] [facility], [place], [address] [place] [address], [place] [facility] 12/09/2022 14:12:39 pneumococcal conjugate PCV 7 5 completed Ava Faust MD Attn: Accounting,[address] [facility], [place], [address] [place] [address], [place] [facility] 12/09/2022 14:12:39 pneumococcal conjugate PCV 7 5 completed Ava Faust MD Attn: Accounting,[address] [facility], [place], [address] [place] [address], [place] [facility] 12/09/2022 14:12:39 DTaP-IPV 0 completed Ava Faust MD Attn: Accounting,[address] [facility], [place], [address] [place] [address], [place] [facility] 12/09/2022 14:12:39 Hep B, adolescent or pediatric 5 completed Ava Faust MD Attn: Accounting,[address] [facility], [place], [address] [place] [address], [place] [facility] 12/09/2022 14:12:40 Hep A, pediatric, unspecified formulation 8 completed Ava Faust MD Attn: Accounting,[address] [facility], [place], [address] [place] [address], [place] [facility] 12/09/2022 14:12:40 Hep A, pediatric, unspecified formulation 7 completed Ava Faust MD Attn: Accounting,[address] [facility], [place], [address] [place] [address], [place] [facility] 12/09/2022 14:12:40 Meningococcal MCV4O 6 completed Ava Faust MD Attn: Accounting,[address] [facility], [place], [address] [place] [address], [place] [facility] 12/09/2022 14:12:40 DTaP 7 completed Ava Faust MD Attn: Accounting,[address] [facility], [place], [address] [place] [address], [place] [facility] 12/09/2022 14:12:40 DTaP-Hep B-IPV 5 completed Ava Faust MD Attn: Accounting,[address] [facility], [place], [address] [place] [address], [place] [facility] 12/09/2022 14:12:40 DTaP-Hep B-IPV 5 completed Ava Faust MD Attn: Accounting,[address] [facility], [place], [address] [place] [address], [place] [facility] 12/09/2022 14:12:40 DTaP-Hep B-IPV 5 completed Ava Faust MD Attn: Accounting,[address] [facility], [place], [address] [place] [address], [facility] - [facility] 12/09/2022 14:12:40 Influenza, live, quadrivalent, intranasal 4 completed Ava Faust MD Attn: Accounting,[address] [facility], [place], [address] [place] [address], [place] [facility] 12/09/2022 14:12:40 Influenza, live, quadrivalent, intranasal 5 completed Ava Faust MD Attn: Accounting,[address] [facility], [place], [address] [place] [address], [facility] - [facility] 12/09/2022 14:12:40 Influenza, live, quadrivalent, intranasal 1 completed Ava Faust MD Attn: Accounting,[address] [facility], [place], [address] [place] [address], [place] [facility] 12/09/2022 14:12:40 Influenza, live, quadrivalent, intranasal 9 completed Ava Faust MD Attn: Accounting,[address] [facility], [place], [address] [place] [address], [place] [facility] 12/09/2022 14:12:40 Influenza, live, quadrivalent, intranasal 0 completed Ava Faust MD Attn: Accounting,[address] [facility], [place], [address] [place] [address], [place] [facility] 12/09/2022 14:12:40 Influenza, split virus, quadrivalent, PF 7 completed Ava Faust MD Attn: Accounting,[address] [facility], [place], [address] [place] [address], [place] [facility] 12/09/2022 14:12:40 Influenza, split virus, quadrivalent, PF 2 completed Ava Faust MD Attn: Accounting,[address] [facility], [place], [address] [place] [address], [place] [facility] 12/09/2022 14:12:40 meningococcal MCV4P 2 completed Rita Valdovinos MA [facility], [place] - [facility] 03/19/2022 15:15:29 Past Encounters Encounter ID Performer Location Encounter Start Date Encounter Closed Date Diagnosis/Indication Diagnosis SNOMED-CT Code Diagnosis ICD10 Code Diagnosis IMO Codes Diagnosis Note [id number] Venessa Griggs MD [facility] [address] [place] [address] 07/10/2019 15:40:33 07/16/2019 09:02:53 Pain in left knee 2411989790 18382 M25.562 Depressive disorder 3548 9007 F32.1 recommende d follow up with Khaogerman HenaoPatrice Celiac disease 535703378 K90.0 [id number] Venessa Griggs MD [facility] [address] [place] [address] 04/09/2020 11:21:48 04/14/2020 15:02:58 Depressive disorder 98659645 F32.1 recommende d follow up with Shalom Henaolabi Muscle pain 80003078 M79 .10 [id number] Venessa Griggs MD [facility] [address] [place] [address] 10/22/2020 08:57:26 10/29/2020 08:37:38 Intermittent palpitations 681811493 R00.2 Attention deficit hyperactivity disorder 370559464 F90.9 i am hesitant to start add medicine until we have a negative test. I am also concerned about the potential for substance abuse in this situation. Osteoarthritis 948518915 M19.90 patient reportedly has pain in all parts of her body other than her face. Parents are pushing for her to get on hydrocodon e. (parents both take opiate pain medicines for documented physical illnesses. ) At [facility] risk of sexually transmitted infection 472208400 Z20.2 patient will be set up for a pelvic exam, STD tests, and control. Positive s creening for depression on PHQ-9 (Patient Health Questionnaire 9) 3530733921 [address] can also evaluate the ADHD situation and figure out what medication s may be helpful. Celiac disease 708332819 K90.0 discussed gluten free diet. [id number] MD [facility] Gl[facility] (Peds) [address] [place] [address] 03/19/2022 14:13:17 03/22/2022 13:45:02 Well child 989089580 Z00.129 Pleasant 17y1mo WF with several health problems as below.#2 Menactra - IUTD. Attention deficit hyperactivity disorder 416774709 F90.[address] Tracey in elementary school, tried on stimulant but side effects at higher dose and just stopped it, has progressed through school with average school grades, no repeating/ failing,wa nts to resume med to finish HS diploma,no info available in [place], but review of med history in [facility] shows Focalin (up to 30mg) until 2015, Adderall last documented 10/07/2017 .Intereste d in resuming at lowest Focalin dose. Nail biting 69218987 F98 .8 Arthritis 0238635 M19.90 Rheum 01/22/19: arthralgia (juv RA?), meloxicam, f/u 6m long overdue f/u, currently no significan t complaints , gave [facility] Rhe[facility] # to call & schedule (d/t both specialtie s being available at [facility]) Childhood obesity 539576 003 Z68.54 E66.8 BMI 31.3 (96%ile),b ut not much change since 2018 Celiac disease 816848524 K90.0 GI 10/07/17: celiac, f/u 3-4m on gluten-marshal e diet (mostly),g ave [facility] GI # to call & schedule (d/t both specialtie s being available at [facility] location) Obstructiv e sleep apnea syndrome 19505607 G47.33 PSG 02/16/14: AHI 2.2 no current sleep issues Depressive disorder 3548 9007 F32.1 h/o depression & anxiety, PHQ 6 today, improved from prior screenings ,possibly d/t pt being out of school and bullying - major source of her depression /anxiety Anxiety 00257838 F41.9 Bullied at school 069486 004 Z60.5 h/o poor school attendance due to bullying, pt didn't feel supported by teachers (if anything, she feels they also were mean to her),dropp ed out last year and looking to finish home-norbert padgett with [employer] program, advised to see if pt qualifies for homebound via [facility], [id number] BUDDY MENDEZ (MIDDLE OR INTERMEDIATE SCHOOL PRINCIPAL) [address] [place] [address] 05/26/2022 14:44:40 05/26/2022 15:32:19 Contraception care management 188292446 Z30.9 Discussed different control options with patient including R/B/A/I. Pt interested in OCPs, rx Lo Lo. Counseled on use and SE. RTC in 3 months. Dysmenorrhea 128902606 N 94.6 NSAIDs around the clock during menses and OCPs as above. Venereal d isease screening 908925020 Z11.3 Safe sex practices discussed. [id number] BUDDY MENDEZ (MIDDLE OR INTERMEDIATE SCHOOL PRINCIPAL) [address] [place] [address] 08/26/2022 15:30:02 08/31/2022 09:39:25 Contraception care 618412808 Z30.9 Discussed different control options with patient including R/B/A/I. Pt interested in trying patches. Counseled on use and SE. RTC in 3 months. Acid reflux 020882283 K2 1.9 Requesting medication for acid reflux. Discussed limiting aggravatin g foods and staying upright after meals. Follow up with PCP. [id number] MD Victor Hugo Glaser (Peds) [address] [place] [address] 12/09/2022 11:40:58 12/13/2022 11:44:56 Sore throat 708597929 J02.9 irritated & inflamed tonsils & post OP, not strongly s/o Strep,Rapi d strep negative - will send cx. Advised on supportive care in the meanwhile: 1. cold or warm beverages (e.g. hot chocolate; tea with honey or lemon)2. popsicles! 3. gargling with warm salt water4. lozenges5. ibuprofen/ tylenol prn [id number] MD [facility] Valladares (Adult Med) [address] [place] [address], [place] [address] 08/29/2023 13:55:36 09/21/2023 13:45:23 History of appendectomy 369286664 Z90.49 F/U surgery Adult heal th examination 339829239 Z00.00 Rheumatoid arthritis 698 66874 M06.9 F/U rheumatolo gy Celiac disease 750008793 K90.0 F/U GI Health Concerns Section Related Observation LastModified by Organization Detai ls LastModified Time None Recorded Concern Status LastModified by Organization Details LastModified Time None Recorded Advance Directives Directive None Recorded Payers Insurance Date Sequence Insurance Name Policy Number Policy Dunn Covered Member ID Dunn Member ID Guarantor Name 08/30/2023 1 [facility] PRIOR TO 04/16/2021 (MEDICAID REPLACEMENT - HMO) Anand Rasheed [id number] 04/08/2024 1 [facility] - DOS ON OR AFTER 21 (MEDICAID REPLACEMENT - HMO) Anand Rasheed [id number] Notes Date Note Type Note Provider Name and Address Organization Details Recorded Time 03/19/2022 text/html 17y1mo WF here for WCC - with mom.Previously followed by Dr Griggs at [place] location, but no WCC (used to see [...] dose. Ava Faust MD Attn: Accounting,[address] [facility], [place], [address], [facility] - SI 03/19/2022 20:02:11 05/26/2022 text/html ROS [...] sexually active. BUDDY MENDEZ Attn: Accounting, [address] [place], [address], [facility] 06/18/2022 14:43:58 08/26/2022 text/html ROS as noted [...] reflux until she can get appointment with manager of radiology. Patient denies personal history of DVT/PE, HTN, cardiovascular disease, migraines, or seizures. She denies tobacco use. BUDDY MENDEZ Attn: Accounting, [address] [place], [address], [facility] SI 08/30/2022 16:03:00 12/09/2022 text/html ROS as noted in the HPI 17 WF here for sore throat - with mom.Est with me 03/19/22; sees Ev at [facility] also. 2-days sore throat, looks red, mom saw some whitish spots on the side?1 NBNB emesis at onset, no nausea, no further emesis, no abd pain,but hurts to eat/drink/swallow.So me cough, a little stuffy nose. No fever. No JARRELL. Family went to local [place] this past weekend, there was a large gathering of people clustered. Ava Faust MD Attn: Accounting, [address] [place], [address], [facility] 12/09/2022 14:22:29 08/29/2023 text/html Here for adult health examination. Has been diagnosed with JRA and celiac disorder. Recent laparoscopic appendectomy. Sadie Mckeon MD Attn: Accounting[address] [facility], [place], [address], [facility] 08/29/2023 14:56:15 OBGyn Episode No OBEpisode recorded.
[2025-10-14 12:02] LABS: Hematocrit 34.6 % (37.0-47.0); Hemoglobin 11.3 g/dL (12.0-15.0); Immature Granulocyte Percent A 0.5 % (0-0.5); Lymphocytes Absolute Auto 2.18 K/mm3 (0.9-3.2); Mean Corpuscular HGB Conc 32.7 g/dl (32-36); Mean Corpuscular Hemoglobin 28.8 pg (26-34); Mean Corpuscular Volume 88.0 fl (80-100); Nucleated Red Blood Cells Absolute Auto 0.000 K/mm3 (0.0-0.012); Nucleated Red Blood Cells Perc 0.0 % (0.0-0.2); Platelet Count Result 211 k/mm3 (150-375); Red Blood Count 3.93 M/mm3 (4.2-5.4); White Blood Count 13.8 K/mm3 (4.5-10.0)
[2025-10-14 12:08] LABS: Add Urine Microscopic? YES; Appearance Urine Clear (Clear); Glucose Urine UA Negative (Negative); Leukocyte Esterase Ur 3+ LEU/UL (Negative); Nitrate Urine Negative (Negative); Non Pathogenic Casts 0-2; Specific Grav Ur 1.012 (1.001-1.035)
[2025-10-14 12:22] LABS: Acetaminophen < 10 ug/mL (10-30); Alanine Aminotransferase 16 U/L (6-35); Albumin Level 3.9 g/dL (3.5-5.1); Alkaline Phosphatase 117 U/L (38-126); Anion Gap 5 mmol/L (4-12); Aspartate Amino Transferase 27 U/L (14-36); Bilirubin,Total 0.4 mg/dL (0.2-1.3); Blood Urea Nitrogen 11 mg/dL (7-17); Calcium 10.0 mg/dL (8.4-10.2); Cannabinoid Screen Urine Positive (Negative); Carbon Dioxide 27 mmol/L (22-30); Chloride 107 mmol/L (98-107); Estimated CRCL calculation 117 ml/min; Estimated Glomerular Filt Rate > 60; Glucose 84 mg/dL (65-110); Potassium 3.9 mmol/L (3.4-5.0); Salicylate < 1.0 mg/dL (2-20); Sodium 139 mmol/L (137-145); Total Protein 7.7 g/dL (6.3-8.2)
[2025-10-14 12:40] LABS: SARS-CoV-2 RNA PCR Negative (Negative)
[2025-10-14 12:57] LABS: Thyroid Stimulating Hormone 2.390 uIU/mL (0.465-4.680)
--- NOTE | 2025-10-14 13:04 | ED_ITS ---
HPI - General Adult General Chief complaint: Psychiatric Symptoms Stated complaint: scoring high on EPDS Time Seen by Provider: 10/14/25 12:08 History of Present Illness HPI narrative: 20-year-old female presenting to the emergency department for evaluation for depression. Patient delivered approximately 3 days ago. Patient states she has been having thoughts of depression and thoughts he is not doing a very good job. Patient states she has had intermittent thoughts of self-harm. Patient states she does not want to harm herself. Patient does have prior history of inpatient psychiatric hospitalization. Related Data Home Medications ?Medication ?Instructions ?Recorded ?Confirmed ?Last Taken ?Type ondansetron 4 mg disintegrating 4 mg PO Q8H 04/10/25 1 11/28/24 09/27/25 History tablet Allergies Allergy/AdvReac Type Severity Reaction Status Date / Time tramadol Allergy Mild Nausea Verified 10/14/25 12:19 gluten Allergy Vomiting Verified 10/14/25 12:19 Review of Systems 2 Review of Systems: All systems reviewed & are unremarkable except as noted in HPI and below PMFSH Past Medical History Medical History Rheumatoid arthritis Normal endoscopy Celiac disease GERD (gastroesophageal reflux disease) Surgical History Surgical History History of appendectomy History of endoscopy Family History Family History Mother Hypertension Father Liver cancer Grandparent Cerebrovascular accident Heart disease Diabetes mellitus Hypertension Social History Social History Smoking status: Former smoker Tobacco type: cigarettes and e-cigarettes/vaping Alcohol intake: never Substance use: former Substance use type: does not use Other substance usage details: Cocaine prior to pregancy Last use: Last summer before Lack of Transportation: No Lack of Food: Sometimes True Current Housing: I Do Not Have Housing Concerned About Future Housing: No Difficulty Paying Gas/Electric Bills: No Difficulty Paying for Meds: No Currently Unemployed: No Education: Grade School Difficulty w/ Childcare or Family Care: No Living arrangements: with family Occupation/Education: occupation Gender identity (if verbalized by the patient): Female Sexual Orientation (if Verbalized by the Patient): Straight or Heterosexual Spiritual care concerns: No Exam 2 Narrative: APPEARANCE: Well appearing, no pain, no distress, well-nourished. HEAD: normocephalic, atraumatic. EYES: PERRLA/EOMI, conjunctivae clear. NOSE: Normal no drainage NECK: Supple. No adenopathy, no masses. RESPIRATORY: Airway patent, respirations nonlabored. Clear to auscultation bilaterally, no rales, rhonchi, wheezing. CARDIOVASCULAR: Regular rate and rhythm without murmurs rubs or gallops. ABDOMINAL: Soft, nontender, nondistended, normal bowel sounds MUSCULOSKELETAL: Moves all extremities. Strength/ROM intact, No edema, No calf tenderness. NEURO: Alert. Cranial nerves II through XII intact. Good gait. Good coordination SKIN: Warm, dry. Normal Color Course Vital Signs Vital signs: Vital Signs Temperature 97.9 F 10/14/25 10:51 Pulse Rate 69 10/14/25 10:51 Respiratory Rate 20 10/14/25 10:51 Blood Pressure 118/75 10/14/25 10:51 Pulse Oximetry 100 10/14/25 10:51 Oxygen Delivery Room Air 10/14/25 10:51 Temperature 97.9 F 10/14/25 10:51 Pulse Rate 69 10/14/25 10:51 Respiratory Rate 20 10/14/25 10:51 Blood Pressure 118/75 10/14/25 10:51 Pulse Oximetry 100 10/14/25 10:51 Oxygen Delivery Room Air 10/14/25 10:51 [facility] Narrative Medical decision making narrative: Patient is medically cleared to be evaluated by crisis, transport and inpatient psychiatric hospitalization as needed. Patient was advised by crisis and patient did feel safe to be discharged home. Patient will have outpatient follow-up. Differential Diagnosis Differential Diagnosis: Depression, depression, suicidal, anxiety Lab Data [facility] Lab Attestation statement: I personally reviewed the patient's lab results. 10/14/25 11:55 10/14/25 11:55 Labs: Lab Results 10/14/25 10/14/25 Range/Units 11:55 11:58 WBC 13.8 H (4.5-10.0) K/mm3 RBC 3.93 L (4.2-5.4) M/mm3 Hgb 11.3 L (12.0-15.0) g/dL Hct 34.6 L (37.0-47.0) % MCV 88.0 (80-100) fl MCH 28.8 (26-34) pg MCHC 32.7 (32-36) g/dl RDW 13.5 (11.5-14.5) % Plt Count 211 (150-375) k/mm3 MPV 11.4 H (7.4-10.4) fl Immature Gran % (Auto) 0.5 (0-0.5) % Neut % (Auto) 77.5 H (45.5-73.1) % Lymph % (Auto) 15.8 L (18.3-44.2) % [place] % (Auto) 4.1 (2.6-8.5) % Eos % (Auto) 1.7 (0-4.4) % Baso % (Auto) 0.4 (0.2-1.2) % Lymph # (Auto) 2.18 (0.9-3.2) K/mm3 [place] # (Auto) 0.6 (0.1-0.6) K/mm3 Eos # (Auto) 0.2 (0-0.3) K/mm3 Baso # (Auto) 0.1 (0.0-0.1) K/mm3 Abs Immat Gran (auto) 0.07 H (0.00-0.031) K/mm3 Absolute Neuts (auto) 10.7 H (1.3-6.7) K/mm3 Absolute Nucleated RBC 0.000 (0.0-0.012) K/mm3 Nucleated RBC % 0.0 (0.0-0.2) % Sodium 139 (137-145) mmol/L Potassium 3.9 (3.4-5.0) mmol/L Chloride 107 (98-107) mmol/L Carbon Dioxide 27 (22-30) mmol/L Anion Gap 5 (4-12) mmol/L BUN 11 D (7-17) mg/dL Creatinine 0.70 (0.7-1.0) mg/dL Estim Creat Clear Calc 117 ml/min Estimated GFR > 60 (59 - ) Glucose 84 (65-110) mg/dL Calcium 10.0 (8.4-10.2) mg/dL Total Bilirubin 0.4 (0.2-1.3) mg/dL AST 27 (14-36) U/L ALT 16 (6-35) U/L Alkaline Phosphatase 117 (38-126) U/L Total Protein 7.7 (6.3-8.2) g/dL Albumin 3.9 (3.5-5.1) g/dL TSH 2.390 (0.465-4.680) uIU/mL Urine Color Yellow (Yellow) Urine Appearance Clear (Clear) Urine pH 7.5 (5.0-9.0) Ur Specific [place] 1.012 (1.001-1.035) Urine Protein Negative (Negative) mg/dL Urine Glucose (UA) Negative (Negative) mg/dL Urine Ketones Negative (Negative) mg/dL Ur Blood (Man) 3+ H (Negative) Urine Nitrate Negative (Negative) Urine Bilirubin Negative (Negative) Urine Urobilinogen 0.2 (<2.0) mg/dL Leukocyte Esterase Rfl 3+ H (Negative) LILA/UL Urine RBC >100 H (0-2) /hpf Urine WBC 21-50 H (0-3) /hpf Ur Squamous Epith Cells Occasional (Few) /hpf Urine Bacteria None seen /hpf Urine Casts 0-2 Salicylates < 1.0 L (2-20) mg/dL Urine Opiates Screen Negative (Negative) Urine Methadone Screen Negative (Negative) Acetaminophen < 10 L (10-30) ug/mL Ur Barbiturates Screen Negative (Negative) Ur Phencyclidine Scrn Negative (Negative) Ur Amphetamine Screen Negative (Negative) U Benzodiazepines Scrn Negative (Negative) Urine Cocaine Screen Negative (Negative) U Cannabinoids Screen Positive A (Negative) Ethyl Alcohol < 10 (<10) mg/dL SARS-CoV-2 RNA (RT-PCR) Negative (Negative) Discharge Plan Discharge Clinical Impression: Depression, Patient Disposition: Home Condition: Stable Instructions: Antibiotic Form, Depression (ED) Additional Instructions: Have close follow-up with your physicians as outpatient. If you have any worsening symptoms or if you do not feel safe at home please call or return to the emergency department. Patient Language: Thai Prescriptions: No Action albuterol sulfate 90 mcg/actuation HFA aerosol inhaler 1 inh inhalation QID PRN (Reason: shortness of breath or wheezing) Qty: 8.5 0RF Classic 28 mg iron- 800 mcg tablet 1 tablet PO DAILY Qty: 90 1RF ondansetron 4 mg tablet,disintegrating 4 mg PO Q8H famotidine 20 mg tablet 20 mg PO DAILY Qty: 30 0RF omeprazole 20 mg capsule,delayed release(DR/EC) 20 mg PO DAILY Qty: 90 0RF ferrous sulfate 325 mg (65 mg iron) tablet,delayed release (DR/EC) 325 mg PO DAILY Qty: 30 0RF acetaminophen 500 mg tablet 500 mg PO Q6H PRN (Reason: pain) Qty: 30 0RF ibuprofen 600 mg tablet 600 mg PO Q6H PRN (Reason: pain) Qty: 30 0RF Follow-up/Referrals: Stuart Loomis MD [Primary Care Provider, SURGICAL TRAINING SPECIALIST]
[2025-10-14] MEDS: LANOLIN (LANSINOH) 7.5 GM CREAM 1 APPLIC (13:16)
[2025-10-14] MEDS: WITCH HAZEL 40 PADS 1 PAD TOPICAL (14:06)
[2025-10-14] MEDS: BENZOCAINE 20% AER SPR (*SP) 56 GM CAN 1 SPRAY TOPICAL (14:06)
== END 2025-10-14 15:55 | disposition home or self-care (01) ==
PROVIDERS: Emergency Provider Emergency Medicine; PCP Student in an Organized Health Care Education/Training Program
DX: O99.345 Other mental disorders complicating the puerperium (principal); F53.0 Postpartum depression; Z11.52 Encounter for screening for COVID-19; O99.893 Other specified diseases and conditions complicating puerperium; M06.9 Rheumatoid arthritis, unspecified; O99.63 Diseases of the digestive system complicating the puerperium; K90.0 Celiac disease; K21.9 Gastro-esophageal reflux disease without esophagitis; Z87.891 Personal history of nicotine dependence; R94.31 Abnormal electrocardiogram [ECG] [EKG]
CPT/HCPCS: 36415; 80053; 80143; 80179; 80307; 81001; 82077; 84443; 85025; 87086; 87635; 93005; 99284; A9270